=== PATIENT | female | born 1980 | race Caucasian/White ===

== ENCOUNTER 2024-07-08 15:27 | Outpatient (OUT) | payer BC, SELFPAY ==
[2024-07-08 15:44] LABS: Basophils Percent Auto 0.3 % (0.2-2.0); Eosinophils Absolute Auto 0.1 10^3/uL (0.0-0.7); Eosinophils Percent Auto 0.6 % (0.9-7.0); Hematocrit 39.5 % (36.0-48.0); Hemoglobin 13.2 g/dL (12.0-16.0); Immature Granulocytes Abs Auto 0.03 10^3/uL (0.00-0.03); Immature Granulocytes Pct Auto 0.3 % (0.0-0.5); Lymphocytes Absolute Auto 2.6 10^3/uL (1.2-3.8); Lymphocytes Percent Auto 28.1 % (20.5-60.0); Mean Corpuscular HGB Conc 33.4 g/dL (29.9-35.2); Mean Corpuscular Hemoglobin 31.7 pg (26.7-34.0); Mean Platelet Volume 8.8 fL (9.5-13.5); Monocytes Absolute Auto 0.7 10^3/uL (0.3-0.8); Monocytes Percent Auto 7.8 % (1.7-12.0); Neutrophils Absolute Auto 5.9 10^3/uL (1.4-6.5); Neutrophils Percent Auto 62.9 % (43.0-75.0); Platelet Count 364 10^3/uL (150-450); Red Blood Count 4.16 10^6/uL (4.20-5.40); Red Cell Distribution Width 11.9 % (11.0-15.0); White Blood Count 9.4 10^3/uL (4.0-11.0)
[2024-07-08 16:01] LABS: Estimated Average Glucose 108 mg/dL; Glycohemoglobin A1C 5.4 % (4.5-6.2)
[2024-07-08 16:29] LABS: Alanine Aminotransferase 15 U/L (14-59); Albumin Globulin Ratio 1.1; Albumin Level 3.8 g/dL (3.4-5.0); Alkaline Phosphatase 51 U/L (46-116); Anion Gap 12.2; Aspartate Amino Transferase 16 U/L (15-37); BUN Creatinine Ratio 15.7; Bilirubin Total 0.6 mg/dL (0.2-1.0); Carbon Dioxide 28.5 mmol/L (21.0-32.0); Chloride 103 mmol/L (98-107); Cholesterol 170 mg/dL (<=200); Estimated GFR (African America >60 (>=60 mL/min/1.73m^2); Estimated GFR (Non-African Ame >60 (>=60 mL/min/1.73m^2); Globulin 3.5 g/dL; Glucose 92 mg/dL (74-106); HDL Cholesterol 86 mg/dL (40-60); Potassium 3.7 mmol/L (3.5-5.1); Sodium 140 mmol/L (136-145); TSH W/ REFLEX FT4 0.424 uIU/mL (0.358-3.740); Total Protein 7.3 g/dL (6.4-8.2); Triglycerides 64 mg/dL (<=150); VLDL CHOLESTEROL 12.8 mg/dL
== END 2024-07-08 15:28 | disposition home or self-care (01) ==
LOC: LAB 15:30
DX: Z00.00 Encounter for general adult medical examination without abnormal findings (principal)
CPT/HCPCS: 36415; 80053; 80061; 83036; 84443; 85025

== ENCOUNTER 2024-09-27 15:50 | Outpatient (OUT) | payer BC, SELFPAY ==
[2024-09-29 04:08] LABS: Transferrin 350 mg/dL (192-364)
[2024-09-29 05:09] LABS: Vitamin B12 421 pg/mL (232-1245)
== END 2024-09-27 15:51 | disposition home or self-care (01) ==
LOC: LAB 15:51
DX: D64.9 Anemia, unspecified (principal)
CPT/HCPCS: 36415; 82607; 82728; 82746; 83540; 83550; 84466

== ENCOUNTER 2024-09-29 15:27 | Outpatient (REF) | payer BC, SELFPAY ==
--- OUTSIDE RECORDS SUMMARY | 2024-09-29 15:39 | XMS_ITS | CCD ---
Author Organization [facility] Care Team Providers Care Ribber Name Role Phone NO FAMILY, PHYSICIAN Primary Care Provider Unava ilable Amna Cobos Attending Provider [facility], DR TUCKER Primary Care Unavailable HERMINIA ., DR GODFREY Attending Unavailable HERMINIA ., DR GODFREY Consulting Unavailable HERMINIA ., DR GODFREY Admitting Unavailable Mariposa OJEDA, Rodrick Primary Care Provider Hassan CERAMIC DESIGN ENGINEER, Shira Unavailable AMNA COBOS Attending Unavailable HASSANTERESAY Attending Unavailabl e BLACKSTONADINAY T Attending Unavailable HASSAN, SHIRA Referring Unavailabl e BLACKSTON LULY T Attending Unavailable HASSAN, SHIRA Referring Unavailabl e BLACKSTON, LULY T Attending Unavailable HASSAN, SHIRA Referring Unavailabl e BLACKSTON LULY T Attending Unavailable HASSAN, SHRIA Referring Unavailabl e BLACKSTON, LULY T Attending Unavailable HASSAN, SHIRA Referring Unavailabl e BLACKSTON, LULY T Attending Unavailable HASSAN, SHIRA Referring Unavailabl e UDAY MATOS Attending Unavailable HASSAN, SHIRA Referring Unavailabl e BLACKSTON, LULY T Attending Unavailable HASSAN, SHIRA Referring Unavailabl e BLACKSTON, LULY T Attending Unavailable HASSAN, SHIRA Referring Unavailabl e HASSAN, SHIRA Attending Unavailabl e Medications Current Medications Medication Drug Class(es) Dates Sig (Normalized) Sig (Original) estradiol 1 mg oral tablet (20 sources) Estrogen Start: 03-29-2024 estradiol (Estrace) 1 MG tablet Indications: Hormone replacement therapy Take 1 tablet daily. 90 tablet 3 03/29/2024 Active Ilion (No Known Home Meds) (1 source) Start: 04-30-2019 Ilion (No Known Home Meds) Active April 30, 2019 12:00am tiZANidine 2 mg oral capsule (20 sources) Central alpha-2 Adrenergic Agonist Start: 07-07-2024 End: 07-07-2025 take 1 capsule by mouth every eight hours tiZANidine (Zanaflex) 2 MG capsule Indications: Back pain of lumbosacral region with sciatica Take 1 capsule (2 mg) by mouth every 8 (eight) hours 90 capsule 11 07/07/2024 07/07/2025 Active traMADol hydrochloride 50 mg oral tablet (1 source) Opioid Agonist Start: 01-28-2021 take 50 mg by mouth every four to six hours Tramadol Active 50 MG PO EVERY 4-6 HOURS January 28, 2021 12:00am Completed/Discontinued Medications Medication Drug Class(es) Dates Sig (Normalized) Sig (Original) cephalexin 500 mg oral capsule (2 sources) Cephalosporin Antibacterial Start: 05-01-2019 End: 01-07-2021 take 1 capsule by mouth four times daily Cephalexin (Keflex) 500 mg capsule Discontinued 500 MG PO Four times daily 03 04May 01, 2019 12:00am January 07, 2021 7:23am Problems Active Problems Problem Classification Problem Date Documented Date Episodic/Chronic Administrative/social admission (20 sources) First encounter by subject; Translations: [Persons encountering health services in other specified circumstances] Onset: 07-07-2024 07-07-2024 Episodic Deficiency and other anemia (5 sources) Anemia; Translations: [Anemia, unspecified] Onset: 09-22-2024 09-22-2024 Episodic Disorders of teeth and jaw (5 sources) Other specified disorders of teeth and supporting structures; Translations: [Periapical abscess without sinus] Onset: 01-10-2023 Episodic Fracture of upper limb (3 sources) Fracture of phalanx of finger; Translations: [Fracture of unspecified phalanx of unspecified finger, initial encounter for closed fracture] 05-01-2019 Episodic Menstrual disorders (20 sources) Dysmenorrhea; Translations: [Dysmenorrhea, unspecified] Onset: 03-25-2023 03-25-2023 Chronic Open wounds of extremities (3 sources) Laceration of finger; Translations: [Laceration without foreign body of unspecified finger without damage to nail, initial encounter] 05-01-2019 Episodic Other connective tissue disease (9 sources) Trochanteric bursitis; Translations: [Trochanteric bursitis, left hip] 07-26-2024 Episodic Other nervous system disorders (1 source) Postoperative pain ; Translations: [Other acute postprocedural pain] 01-28-2021 Episodic Skull and face fractures (1 source) Fracture of tooth (traumatic), initial encounter for closed fracture; Translations: [FX TOOTH TRAUMAT INIT ENC CLOS FX] Onset: 01-13-2023 Episodic Spondylosis; intervertebral disc disorders; other back problems (20 sources) Lumbago with sciatica; Translations: [Lumbago with sciatica, unspecified side] Onset: 07-07-2024 07-07-2024 Episodic Past or Other Problems Problem Classification Problem Date Documented Date Episodic/Chronic Other female genital disorders (20 sources) Mass of left ovary; Translations: [Other noninflammatory disorders of ovary, fallopian tube and broad ligament] Onset: 03-25-2023 03-25-2023 Episodic Other screening for suspected conditions (not mental disorders or infectious disease) (20 sources) Mammography abnormal; Translations: [Other abnormal and inconclusive findings on diagnostic imaging of breast] Onset: 03-25-2023 03-25-2023 Episodic Viral infection (20 sources) Condyloma acuminatum of the anogenital region; Translations: [Anogenital (venereal) warts] Onset: 03-25-2023 03-25-2023 Episodic Results Test Name Value Interpretation Reference Range Facility ALL FOLIC ACIDon 09-27-2024 FOLATE 26.7 ng/mL 8.60 - 58.90 ng/mL [facility] FERRITINon 09-27-2024 Ferritin [Mass/Vol] 86 ng/mL 8.0 - 25 2.0 ng/mL [facility] METRO IRON AND TIBCon 2024 TBH IRON 122 ug/dL 50.0 - 170.0 ug/dL [facility] TB PERCENT IRON SATURATION 28 % [facility] TB TOTAL IRON BINDING CAPACITY 436 ug/dL 250.0 - 450.0 ug/dL [facility] No [facility] WITH AUTO DIFFon BASOPHILS ABSOLUTE AUTO 0 [facility] Basophils/100 WBC (Bld) 0.3 % 0.2 - 2.0 % [facility] Eosinophils/100 WBC (Bld) 0.6 % Low 0.9 - 7.0 % [facility] Erythrocyte distribution width (RBC) [Ratio] 11.9 % 11.0 - 15.0 % [facility] Hematocrit (Bld) [Volume fraction] 39.5 % 36.0 - 48.0 % [facility] Hemoglobin (Bld) [Mass/Vol] 13.2 g/dL 12.0 - 16.0 g/dL [facility] IMMATURE GRANULOCYTES ABS AUTO 0.03 [facility] Immature granulocytes/100 WBC (Bld) 0.3 % 0.0 - 0.5 % [facility] Interpretation and review of laboratory results Abnormal [facility] LYMPHOCYTES ABSOLUTE AUTO 2.6 [facility] Lymphocytes/100 WBC (Bld) 28.1 % 20.5 - 60.0 % [facility] MCH (RBC) [Entitic mass] 31.7 pg 26.7 - 34.0 pg [facility] MCHC (RBC) [Mass/Vol] 33.4 g/dL 29.9 - 35.2 g/dL [facility] MCV (RBC) [Entitic vol] 95 fL 81.0 - 99.0 fL [facility] MONOCYTES ABSOLUTE AUTO 0.7 [facility] Monocytes/100 WBC (Bld) 7.8 % 1.7 - 12.0 % [facility] NEUTROPHILS ABSOLUTE AUTO 5.9 [facility] Neutrophils/100 WBC (Bld) 62.9 % 43.0 - 75.0 % [facility] Platelet mean volume (Bld) [Entitic vol] 8.8 fL Low 9.5 - 13.5 fL [facility] TBH EO # 0.1 [facility] TB PLT 364 [facility] RBC 4.16 Low [facility] TBH WBC 9.4 [facility] MM diagnostic mammo BI w/CAD on 03-27-2022 MM diagnostic mammo BI w/CAD [facility] [place] [address] Ultrasound Report Signed Patient: Evaristo Green MR#: [id number] : 1980 Acct:[id number] Age/Sex: 41 / F ADM Date: 03/27/22 Loc: [place] Room: Type: [facility] Attending Dr: Amna Cobos DO Ordering Provider: Amna Cobos DO Date of Service: 03/27/22 MM/MM diagnostic mammo BI w/CAD: abnormal 2020 mammogram;Breast cancer screening;Abnormal bryan ([id number]) US/US breast LT limited: F/U Copies to: Amna Cobos DO CLINICAL DATA: Follow-up cyst left breast BilateralDIAGNOSTIC MAMMOGRAM - WITH TOMOSYNTHESIS AND CAD , leftLIMITED BREAST ULTRASOUND COMPARISON:Mammograms dating back to 2020. Left breast ultrasound 12/25/2020 Tomosynthesis imaging was obtained using low-dose digital technique. This examination was reviewed with the aid of CAD. Additional ultrasound imaging was also obtained. Mammogram: The breasts are composed of scattered fibroglandular densities. No new areas of architectural distortion, worrisome masses or suspicious calcifications Ultrasound: At the 8:00 position of the left breast approximately 4 to 5 cm from nipple, the previous identified cyst is unchanged in size and configuration measuring 4 mm in greatest dimension. US/US breast LT limited IMPRESSION: NO MAMMOGRAPHIC OR ULTRASOUND EVIDENCE OF MALIGNANCY. ROUTINE FOLLOW-UP IS RECOMMENDED IN ONE YEAR. RESULT CODE: 2 Benign Findings(s) DENSITY CODE: 2 (approximately 25-50% glandular) FOLLOW UP: 1YR The false-negative rate of mammography is approximately 10-percent. Management of a palpable abnormality must be based on clinical grounds. Impression dictated by: Orion Cummings Jr., D.OSanam03/27/2022 3:30 PM Dictation Location: [facility] Tech: Archanamo Deleon; Isela Ruiz Transcribed By: ANGUS 03/27/22 1530 Dictated By: Orion Cummings Jr, DO 03/27/22 1526 Signed By: 03/27/22 1530 Normal [facility] COVID-19 Positive/Negativeon 01-10-2021 SARS-CoV-2 (COVID-19) N gene ORESTES+probe Ql (Resp) Positive Negative [facility] Comment on above: Critical valueresult calledat 1337 on 01/10/21Testing for SARS-CoV-2 by RT-PCRThis test was developed and its performance characteristics determined by [employer] and validated at the [facility]. This test has not been FDA cleared or approved. This test has been authorized by FDA under an Emergency Use Authorization (EUA). This test has been validated in accordance with the FDA's Guidance Document (Policy for Diagnostics Testing in Laboratories Certified to Perform High Complexity Testing under CLIA prior to Emergency Use Authorization for Coronavirus Disease-2019 during the Public Health Emergency) issued on December 08, 2019. This test is only authorized for the duration of time the declaration that circumstances exist justifying the authorization of the emergency use of in vitro diagnostic tests for detection of SARS-CoV-2 virus and/or diagnosis of COVID-19 infection under section 564(b)(1) of the Act, 21 U.S.C. 360bbb-3(b)(1), unless the authorization is terminated or revoked sooner. Activated partial thrombopla stin time (aPTT) in platelet poor plasma by coagulation aon 01-07-2021 aPTT Coag (PPP) [Time] 33.9 s 25.1-36.5 [facility] Albumin [Mass/volume] in Ser um or Plasmaon 01-07-2021 Albumin [Mass/Vol] 3.9 g/dL 3.2-5.5 [facility] Automated erythrocytes count in urine sediment (number/area)on 01-07-2021 RBC Auto (Urine sed) [#/Area] 5-9 [HPF] [facility] Automated leukocytes count i n urine sediment (number/area)on 01-07-2021 WBC Auto (Urine sed) [#/Area] 1-2 [HPF] [facility] Basophils Auto (Bld) [#/Vol] on 01-07-2021 Basophils (Bld) [#/Vol] 0.0 10*3/uL 0.0-0.2 [facility] Basophils/100 WBC Auto (Bld) on 01-07-2021 Basophils/100 WBC (Bld) 0.4 % [facility] Bilirubin Test strip Ql (U)o n 01-07-2021 Bilirubin Ql (U) Negative Negative [facility] Blood hemoglobin measurement (mass/volume)on 01-07-2021 Hemoglobin (Bld) [Mass/Vol] 12.4 g/dL 11.8-15.4 [facility] Blood leukocytes automated c ount (number/volume)on 01-07-2021 WBC (Bld) [#/Vol] 12.1 10*3/uL 4.5-11.0 [facility] Color Auto (U)on 01-07-2021 Color (U) Yellow Yellow [facility] Creatinine and Glomerular fi ltration rate.predicted panel (S/P/Bld)on 01-07-2021 Creatinine [Mass/Vol] 0.72 mg/dL 0.44-1.03 [facility] Eosinophils Auto (Bld) [#/Vo l]on 01-07-2021 Eosinophils (Bld) [#/Vol] 0.1 10*3/uL 0.0-0.45 [facility] Eosinophils/100 WBC Auto (Bl d)on 01-07-2021 Eosinophils/100 WBC (Bld) 0.9 % [facility] Erythrocyte distribution wid th Auto (RBC) [Ratio]on 01-07-2021 Erythrocyte distribution width (RBC) [Ratio] 13.0 % 11.9-15.3 [facility] Estimated glomerular filtrat ion rate (GFR) non- Americanon 01-07-2021 GFR/1.73 sq M.predicted among non-blacks MDRD (S/P/Bld) [Vol rate/Area] > 60 mL/Min [facility] Globulin Calc (S) [Mass/Vol] on 01-07-2021 Globulin (S) [Mass/Vol] 2.5 g/dL [facility] Hematocrit Auto (Bld) [Volum e fraction]on 01-07-2021 Hematocrit (Bld) [Volume fraction] 38.1 % 34.0-46.4 [facility] Ketones Auto test strip (U) [Mass/Vol]on 01-07-2021 Ketones (U) [Mass/Vol] Negative Negative [facility] Laboratory - Coagulationon 0 01-07-2021 PT Coag (PPP) [Time] 11.2 s 9.0-12.9 [facility] Laboratory - Hematology and Cell countson 01-07-2021 Nucleated RBC/100 WBC (Bld) [Ratio] 0.0 % 0-0.5 [facility] Laboratory - Urinalysison Hyaline casts LM Ql (Urine sed) 0-8 [LPF] [facility] Lymphocytes Auto (Bld) [#/Vo l]on 01-07-2021 Lymphocytes (Bld) [#/Vol] 3.1 10*3/uL 1.00-4.8 [facility] Lymphocytes/100 WBC Auto (Bl d)on 01-07-2021 Lymphocytes/100 WBC (Bld) 25.5 % [facility] MCH Auto (RBC) [Entitic mass ]on 01-07-2021 MCH (RBC) [Entitic mass] 31.0 pg 24.7-34.3 [facility] MCHC Auto (RBC) [Mass/Vol]on 01-07-2021 MCHC (RBC) [Mass/Vol] 32.5 g/dL 32.0-35.0 [facility] MCV Auto (RBC) [Entitic vol] on 01-07-2021 MCV (RBC) [Entitic vol] 95.3 fL 80-100 [facility] Monocytes Auto (Bld) [#/Vol] on 01-07-2021 Monocytes (Bld) [#/Vol] 0.9 10*3/uL 0.0-0.8 [facility] Monocytes/100 WBC Auto (Bld) on 01-07-2021 Monocytes/100 WBC (Bld) 7.7 % [facility] Neutrophils Auto (Bld) [#/Vo l]on 01-07-2021 Neutrophils (Bld) [#/Vol] 7.9 10*3/uL 1.8-7.7 [facility] Neutrophils/100 WBC Auto (Bl d)on 01-07-2021 Neutrophils/100 WBC (Bld) 65.5 % [facility] Nitrite Test strip Ql (U)on 01-07-2021 Nitrite Ql (U) Negative Negative [facility] No Panel Informationon 01-07 Estimated GFR () > 60 mL/Min [facility] Comment on above: GFR estimated refere nce range: According to KDOQI guidelines, <60 ml/min/1.73m2 is sufficient to diagnose a patient with chronic kidney disease. Pharmacy Creatinine Clearance (Chem N/A [facility] Platelet mean volume Auto (B ld) [Entitic vol]on 01-07-2021 Platelet mean volume (Bld) [Entitic vol] 7.5 fL 6.3-10.7 [facility] Platelet poor plasma interna tional normalized ratio (INR) by coagulation assay (relaton 01-07-2021 INR Coag (PPP) [Relative time] 1.0 {INR} [facility] Comment on above: INR Therapeutic Rang e A) Pre- and Peroperative OAT started two weeks before surgery. NOT HIP SURGERY: 1.5 - 2.5 HIP SURGERY: 2 - 3B) Primary and secondary prevention of venous THROMBOSIS: 2 - 3C) Active venous thrombosis, pulmonary embolismand prevention of recurrent venous thrombosis: 2 - 3D) Prevention of arterial thromboembolismincluding patients with mechanical heart valves: 3 - 4.5 Platelets Auto (Bld) [#/Vol] on 01-07-2021 Platelets (Bld) [#/Vol] 364 10*3/uL 150-450 [facility] Protein Auto test strip (U) [Mass/Vol]on 01-07-2021 Protein (U) [Mass/Vol] Negative Negative [facility] Protein [Mass/volume] in Ser um or Plasmaon 01-07-2021 Protein [Mass/Vol] 6.4 g/dL 6.1-7.9 [facility] RBC Auto (Bld) [#/Vol]on RBC (Bld) [#/Vol] 4.00 10*6/uL 3.60-5.00 [facility] Serum or plasma alanine arizmendi otransferase measurement without P-5'-P (enzymatic activion 01-07-2021 ALT No additional P-5'-P [Catalytic activity/Vol] 17 U/L 10-60 [facility] Serum or plasma albumin/glob ulin mass ratioon 01-07-2021 Albumin/Globulin [Mass ratio] 1.6 {ratio} [facility] Serum or plasma alkaline kevin sphatase measurement (enzymatic activity/volume)on 01-07-2021 ALP [Catalytic activity/Vol] 64 U/L 32-92 [facility] Serum or plasma aspartate am inotransferase measurement (enzymatic activity/volume)on 01-07-2021 AST [Catalytic activity/Vol] 20 U/L 10-42 [facility] Serum or plasma calcium sakshi urement (mass/volume)on 01-07-2021 Calcium [Mass/Vol] 9.1 mg/dL 8.2-10.2 [facility] Serum or plasma cancer antig en 125 (CA-125) measurement (units/volume)on 01-07-2021 Cancer Ag 125 Qn 21.9 [arb'U]/mL [facility] Comment on above: Bob [employer] El ectrochemiluminescence Immunoassay(ECLIA)Values obtained with different assay methods or kits cannotbe used interchangeably. Results cannot be interpreted asabsolute evidence of the presence or absence of malignantdisease.Performed at: [employer] [address] [id number] Director: Robert Hutson PhD, Phone: [phone] Serum or plasma carcinoembry onic antigen measurement (mass/volume)on 01-07-2021 Carcinoembryonic Ag [Mass/Vol] 1.6 ng/mL 0.0-3.0 [facility] Serum or plasma chloride meghana surement (moles/volume)on 01-07-2021 Chloride [Moles/Vol] 103 mmol/L 95-114 [facility] Serum or plasma glucose sakshi urement (mass/volume)on 01-07-2021 Glucose [Mass/Vol] 96 mg/dL 70-100 [facility] Comment on above: ADA recommended refe rence rangeRandom Glucose Reference Range is dependent on time and content of last meal. Glucose of more than 200 mg/dL in a nonstressed, ambulatory subject supports the diagnosis of Diabetes Mellitus. Serum or plasma potassium me asurement (moles/volume)on 01-07-2021 Potassium [Moles/Vol] 3.8 mmol/L 3.5-5.1 [facility] Serum or plasma sodium measu rement (moles/volume)on 01-07-2021 Sodium [Moles/Vol] 137 mmol/L 136-146 [facility] Serum or plasma total biliru bin measurement (mass/volume)on 01-07-2021 Bilirubin [Mass/Vol] 0.4 mg/dL 0.3-1.2 [facility] Serum or plasma total carbon dioxide measurement (moles/volume)on 01-07-2021 CO2 [Moles/Vol] 26.1 mmol/L 22.0-30.0 [facility] Serum or plasma urea nitroge n measurement (mass/volume)on 01-07-2021 Urea nitrogen [Mass/Vol] 12 mg/dL 9-23 [facility] Specific gravity Auto test s trip (U) [Rel density]on 01-07-2021 Specific gravity (U) [Rel density] 1.029 1.001-1.030 [facility] Squamous epithelial cells de tection in urine sediment by light microscopyon 01-07-2021 Epithelial cells.squamous LM Ql (Urine sed) 5-9 [HPF] [facility] Urine bacteria detection by automated methodon 01-07-2021 Bacteria Auto Ql (U) None seen None Seen [facility] Urine clarity by refractomet ry automatedon 01-07-2021 Clarity Refractometry automated (U) Clear Clear [facility] Urine glucose measurement by automated test strip (mass/volume)on 01-07-2021 Glucose Auto test strip (U) [Mass/Vol] Normal mg/dL Normal [facility] Urine hemoglobin detection b y automated test stripon 01-07-2021 Hemoglobin Auto test strip Ql (U) 3+ Negative [facility] Urine leukocyte esterase det ection by automated test stripon 01-07-2021 Leukocyte esterase Auto test strip Ql (U) Negative Negative [facility] Urobilinogen Auto test strip (U) [Mass/Vol]on 01-07-2021 Urobilinogen (U) [Mass/Vol] Normal mg/dL Normal [facility] pH Auto test strip (U)on pH (U) 6.5 [pH] 5.0-9.0 [facility] Vital Signs Date Time Vital Sign Value Performing Clinician Faci lity 09-22-2024 14:55-0500 Body height 165.1 cm Shira Hassan CERAMIC DESIGN ENGINEER Work Phone: [facility] 09-22-2024 14:55-0500 Body mass index (BMI) [Ratio] 29.29 kg/m2 Shira Hassan CERAMIC DESIGN ENGINEER Work Phone: [facility] 09-22-2024 14:55-0500 Body temperature 97.5 [degF] Shira Hassan CERAMIC DESIGN ENGINEER Work Phone: [facility] 09-22-2024 14:55-0500 Body weight 79.83 kg Shira Hassan CERAMIC DESIGN ENGINEER Work Phone: [facility] 09-22-2024 14:55-0500 Diastolic blood pressure 70 mm[Hg] Shira Hassan CERAMIC DESIGN ENGINEER Work Phone: [facility] 09-22-2024 14:55-0500 Heart rate 76 /min Shira Hassan CERAMIC DESIGN ENGINEER Work Phone: [facility] 09-22-2024 14:55-0500 Respiratory rate 20 /min Shira Hassan CERAMIC DESIGN ENGINEER Work Phone: [facility] 09-22-2024 14:55-0500 SaO2% (BldA) [Mass fraction] 99 % Shira Hassan CERAMIC DESIGN ENGINEER Work Phone: [facility] 09-22-2024 14:55-0500 Systolic blood pressure 130 mm[Hg] Shira Hassan CERAMIC DESIGN ENGINEER Work Phone: [facility] 07-07-2024 15:52-0400 Body height 165.1 cm Shira Hassan CERAMIC DESIGN ENGINEER Work Phone: [facility] 07-07-2024 15:52-0400 Body mass index (BMI) [Ratio] 28.46 kg/m2 Shira Hassan CERAMIC DESIGN ENGINEER Work Phone: [facility] 07-07-2024 15:52-0400 Body temperature 96.6 [degF] Shira Milligank CERAMIC DESIGN ENGINEER Work Phone: [facility] 07-07-2024 15:52-0400 Body weight 77.56 kg Shira Milligank CERAMIC DESIGN ENGINEER Work Phone: [facility] 07-07-2024 15:52-0400 Diastolic blood pressure 72 mm[Hg] Shira Ayalapatrick CERAMIC DESIGN ENGINEER Work Phone: [facility] 07-07-2024 15:52-0400 Heart rate 83 /min Shira Callestrick CERAMIC DESIGN ENGINEER Work Phone: [facility] 07-07-2024 15:52-0400 Respiratory rate 16 /min Shira Callestrick CERAMIC DESIGN ENGINEER Work Phone: [facility] 07-07-2024 15:52-0400 SaO2% (BldA) [Mass fraction] 98 % Shira Calelstrick CERAMIC DESIGN ENGINEER Work Phone: [facility] 07-07-2024 15:52-0400 Systolic blood pressure 124 mm[Hg] Shira Ayalapatrick CERAMIC DESIGN ENGINEER Work Phone: [facility] Healthcare Encounters Encounter Date Encounter Type Care Provider Facility Start: 09-27-2024 End: 09-27-2024 Clinisync Result Encounter Shira Milligank CERAMIC DESIGN ENGINEER Work Phone: [facility] External Department Unsolicited Start: 09-27-2024 End: 09-27-2024 Clinisync Result Encounter Shira Milligank CERAMIC DESIGN ENGINEER Work Phone: [facility] External Department Unsolicited Start: 09-22-2024 End: 09-22-2024 Office outpatient visit 10 minutes Shira Milligank CERAMIC DESIGN ENGINEER Work Phone: [facility] Comment on above: Anemia, unspecified type (Primary Dx); Back pain of lumbosacral region with sciatica Start: 09-22-2024 End: 09-22-2024 ambulatory SHIRA HASSAN Not Available Start: 09-22-2024 End: 09-22-2024 Bamboo flowsheet Shira Hassan CERAMIC DESIGN ENGINEER Work Phone: [facility] Start: 09-22-2024 End: 09-22-2024 Bamboo flowsheet Shira Milligank CERAMIC DESIGN ENGINEER Work Phone: [facility] Start: 08-18-2024 End: 08-18-2024 ambulatory Luly Garcia PT Work Phone: [facility] Comment on above: Back pain of lumbosa cral region with sciatica (Primary Dx); Greater trochanteric bursitis of left hip Start: 08-18-2024 End: 08-18-2024 Bamboo flowsheet Luly Garcia PT Work Phone: [facility] Start: 08-18-2024 End: 08-18-2024 Bamboo flowsheet Luly Garcia PT Work Phone: [facility] Start: 08-15-2024 End: 08-15-2024 ambulatory Luly Garcia PT Work Phone: [facility] Comment on above: Back pain of lumbosa cral region with sciatica (Primary Dx); Greater trochanteric bursitis of left hip Start: 08-15-2024 End: 08-15-2024 Bamboo flowsheet Luly Garcia PT Work Phone: [facility] Start: 08-15-2024 End: 08-15-2024 Bamboo flowsheet Luly Garcia PT Work Phone: [facility] Start: 08-10-2024 End: 08-10-2024 ambulatory Uday Brink BLOOD COLLECTOR [facility] Comment on above: Back pain of lumbosa cral region with sciatica (Primary Dx); Greater trochanteric bursitis of left hip Start: 08-10-2024 End: 08-10-2024 Bamboo flowsheet Uday Brink BLOOD COLLECTOR [facility] Start: 08-10-2024 End: 08-10-2024 Bamboo flowsheet Uday Matos BLOOD COLLECTOR [facility] Start: 08-08-2024 End: 08-09-2024 ambulatory Luly Iqra Blackston PT Work Phone: [facility] Comment on above: Back pain of lumbosa cral region with sciatica (Primary Dx); Greater trochanteric bursitis of left hip Start: 08-08-2024 End: 08-08-2024 Bamboo flowsheet Luly T Blackston PT Work Phone: [facility] Start: 08-08-2024 End: 08-08-2024 Bamboo flowsheet Luly T Blackston PT Work Phone: [facility] Start: 08-01-2024 End: 08-02-2024 ambulatory Luly Iqra Blackston PT Work Phone: [facility] Comment on above: Back pain of lumbosa cral region with sciatica (Primary Dx); Greater trochanteric bursitis of left hip Start: 08-01-2024 End: 08-01-2024 Bamboo flowsheet Luly T Blackston PT Work Phone: [facility] Start: 08-01-2024 End: 08-01-2024 Bamboo flowsheet Luly T Blackston PT Work Phone: [facility] Start: 07-28-2024 End: 07-28-2024 ambulatory Luly T Blackston PT Work Phone: [facility] Comment on above: Back pain of lumbosa cral region with sciatica (Primary Dx); Greater trochanteric bursitis of left hip Start: 07-28-2024 End: 07-28-2024 Bamboo flowsheet Luly T Blackston PT Work Phone: [facility] Start: 07-28-2024 End: 07-28-2024 Bamboo flowsheet Luly T Blackston PT Work Phone: [facility] Start: 07-26-2024 End: 07-26-2024 ambulatory Luly Garcia PT Work Phone: [facility] Comment on above: Back pain of lumbosa cral region with sciatica (Primary Dx); Greater trochanteric bursitis of left hip Start: 07-26-2024 End: 07-26-2024 Bamboo flowsheet Luly Tinsleyton PT Work Phone: [facility] Start: 07-26-2024 End: 07-26-2024 Bamboo flowsheet Luly Tinsleyton PT Work Phone: [facility] Start: 07-21-2024 End: 07-21-2024 ambulatory Luly Garcia PT Work Phone: [facility] Comment on above: Back pain of lumbosa cral region with sciatica (Primary Dx); Greater trochanteric bursitis of left hip Start: 07-21-2024 End: 07-21-2024 Bamboo flowsheet Luly Tinsleyton PT Work Phone: [facility] Start: 07-21-2024 End: 07-21-2024 Bamboo flowsheet Luly Garcia PT Work Phone: [facility] Start: 07-18-2024 End: 07-19-2024 ambulatory Luly Garcia PT Work Phone: [facility] Comment on above: Back pain of lumbosa cral region with sciatica (Primary Dx); Greater trochanteric bursitis of left hip Start: 07-18-2024 End: 07-18-2024 Bamboo flowsheet Luly Iqra Blackston PT Work Phone: [facility] Start: 07-18-2024 End: 07-18-2024 Bamboo flowsheet Luly Iqra Blackston PT Work Phone: [facility] Start: 07-08-2024 End: 07-08-2024 Clinisync Result Encounter Shira Hassan CERAMIC DESIGN ENGINEER Work Phone: [facility] Unsolicited Start: 07-08-2024 End: 07-08-2024 Clinisync Result Encounter Shira Hassan CERAMIC DESIGN ENGINEER Work Phone: [facility] Unsolicited Start: 07-07-2024 End: 07-07-2024 Initial preventive medicine new patient 40-64yrs Shira Hassan CERAMIC DESIGN ENGINEER Work Phone: [facility] Comment on above: Back pain of lumbosa cral region with sciatica (Primary Dx); Wellness examination Start: 07-07-2024 End: 07-07-2024 ambulatory SHIRA HASSAN Not Available Start: 07-07-2024 End: 07-07-2024 Bamboo flowsheet Shira Milligank CERAMIC DESIGN ENGINEER Work Phone: [facility] Start: 07-07-2024 End: 07-07-2024 Bamboo flowsheet Shira Milligank CERAMIC DESIGN ENGINEER Work Phone: [facility] Start: 07-07-2024 End: 07-07-2024 Patient encounter status Shira Hassan CERAMIC DESIGN ENGINEER Work Phone: [facility] Start: 03-29-2024 End: 03-29-2024 ambulatory AMNA COBOS Not Available Start: 01-10-2023 End: 01-10-[address] DOCTOR SOLORZANO Facility: Start: 03-27-2022 End: 03-27-2022 Patient encounter procedure PHYSICIAN NO [facility] Start: 01-10-2021 End: 01-10-2021 Patient encounter procedure PHYSICIAN NO FAMILY -Pre-Surgical Testing Start: 01-07-2021 End: 01-07-2021 Patient encounter procedure PHYSICIAN NO FAMILY -Pre-Surgical Testing Start: 12-25-2020 End: 12-25-2020 Patient encounter procedure PHYSICIAN NO [facility] Start: 12-21-2020 End: 12-21-2020 Patient encounter procedure PHYSICIAN NO [facility] Procedures Date Procedure Procedure Detail Performing Clinician Start: 09-27-2024 ALL FOLIC ACID Shira Hassan CERAMIC DESIGN ENGINEER Work Phone: Start: 09-27-2024 [facility]IN Shira lubin CERAMIC DESIGN ENGINEER Work Phone: Start: 09-27-2024 [facility] Kamilah ben Hassan CERAMIC DESIGN ENGINEER Work Phone: Start: 07-08-2024 ALL CBC WITH AUTO DIFF Shira Hassan CERAMIC DESIGN ENGINEER Work Phone: Start: 03-27-2022 Ultrasonography of l eft breast PHYSICIAN NO FAMILY Start: 03-27-2022 End: 03-27-2022 Bilateral mammography PHYSICIAN NO FAMIL Y Start: 12-25-2020 Mammography of left breast PHYSICIAN NO FAMILY Start: 12-25-2020 Ultrasonography of l eft breast PHYSICIAN NO FAMILY Start: 12-21-2020 Screening mammograph y of bilateral breasts PHYSICIAN NO FAMILY Plan of Treatment Date Care Activity Detail Author Start: 09-25-2025 End: 09-25-2025 Patient encounter procedure 09/25/2025 4:00 PM EST Office Visit [facility] [address] [place] [phone] Shira Hassan, ARLYN [address] [place] [phone] [facility] Start: 04-03-2025 End: 04-03-2025 Patient encounter procedure 04/03/2025 3:45 PM EDT Office Visit [facility] [address] [place] [address] Amna Cobos, DO [address] [place] [address] [facility] Start: 03-06-2025 Influenza vaccination Influenza Vacc ine (#1) [facility] Comment on above: Postponed from 05/08 (Patient Refused) Start: 09-22-2024 End: 09-22-2024 Patient encounter procedure 09/22/2024 3:00 PM EST Office Visit [facility] [address] [place] [address] Shira Hassan, CERAMIC DESIGN ENGINEER [address] [place] [address] Arrived [facility] Comment on above: Arrived Start: 09-22-2024 End: 09-22-2025 Cobalamin (Vitamin B12) [Mass/volume] in Serum or Plasma Vitamin B12 Lab Routine Anemia, unspecified type Expected: 09/22/2024 (Approximate), Expires: 09/22/2025 [facility] Work Phone: Comment on above: Expected: 09/22/2024 (Approximate), Expires: 09/22/2025 Start: 09-22-2024 End: 09-22-2025 Ferritin [Mass/volume] in Serum or Plasma Ferritin Lab Routine Anemia, unspecified type Expected: 09/22/2024 (Approximate), Expires: 09/22/2025 [facility] Comment on above: Expected: 09/22/2024 (Approximate), Expires: 09/22/2025 Start: 09-22-2024 End: 09-22-2025 Folate [Mass/volume] in Serum or Plasma Folate Lab Routine Anemia, unspecified type Expected: 09/22/2024 (Approximate), Expires: 09/22/2025 [facility] Comment on above: Expected: 09/22/2024 (Approximate), Expires: 09/22/2025 Start: 09-22-2024 End: 09-22-2025 Iron + transferrin + TIBC Iron + transferrin + TIBC Lab Routine Anemia, unspecified type Expected: 09/22/2024 (Approximate), Expires: 09/22/2025 [facility] Comment on above: Expected: 09/22/2024 (Approximate), Expires: 09/22/2025 Start: 09-22-2024 End: 09-22-2025 Measurement of occult blood in single stool specimen Occult blood x 1, stool Lab Routine Anemia, unspecified type Expected: 09/22/2024 (Approximate), Expires: 09/22/2025 [facility] Comment on above: Expected: 09/22/2024 (Approximate), Expires: 09/22/2025 Start: 09-13-2024 End: 09-13-2024 Patient encounter procedure 09/13/2024 4:00 PM EST Office Visit [facility] [address] [place] [phone] Shira Hassan CERAMIC DESIGN ENGINEER [address] [place] [phone] [facility] Start: 08-18-2024 End: 08-18-2024 ambulatory [facility] Comment on above: Arrived Start: 08-17-2024 End: 08-17-2024 ambulatory [facility] Start: 08-15-2024 End: 08-15-2024 ambulatory [facility] Comment on above: Arrived Start: 08-10-2024 End: 08-10-2024 ambulatory [facility] Comment on above: Back pain of lumbosa cral region with sciatica (Primary Dx); Greater trochanteric bursitis of left hip Start: 08-08-2024 End: 08-08-2024 ambulatory [facility] Comment on above: Arrived Start: 08-01-2024 End: 08-01-2024 ambulatory [facility] Comment on above: Arrived Start: 07-28-2024 End: 07-28-2024 ambulatory [facility] Comment on above: Arrived Start: 07-26-2024 End: 07-26-2024 ambulatory 07/26/2024 5:00 PM EST Treatment [facility] [address] [facility] [address] [place] [address] Luly Garcia, PT [address] [place] [address] [facility] Start: 07-18-2024 End: 07-18-2024 ambulatory 07/18/2024 4:30 PM EST Evaluation [facility] [address] [place] [address] Luly Garcia, PT [address] [place] [address] [facility] Start: 07-07-2024 End: 07-07-2024 Patient encounter procedure 07/07/2024 4:00 PM EDT Office Visit [facility] [address] [place] [phone] Shira Hassan, ARLYN [address] [place] [phone] Arrived [facility] Comment on above: Arrived Start: 07-07-2024 End: 07-07-2025 CBC W Auto Differential panel - Blood CBC and differential Lab Routine Wellness examination Expected: 07/07/2024 (Approximate), Expires: 07/07/2025 [facility] Comment on above: Expected: 07/07/2024 (Approximate), Expires: 07/07/2025 Start: 07-07-2024 End: 07-07-2025 Comprehensive metabolic 2000 panel - Serum or Plasma Comprehensive metabolic panel Lab Routine Wellness examination Expected: 07/07/2024 (Approximate), Expires: 07/07/2025 [facility] Comment on above: Expected: 07/07/2024 (Approximate), Expires: 07/07/2025 Start: 07-07-2024 End: 07-07-2025 Hemoglobin A1c/Hemoglobin.total in Blood Hemoglobin A1c Lab Routine Wellness examination Expected: 07/07/2024 (Approximate), Expires: 07/07/2025 [facility] Comment on above: Expected: 07/07/2024 (Approximate), Expires: 07/07/2025 Start: 07-07-2024 End: 07-07-2025 Lipid 1996 panel - Serum or Plasma Lipid panel Lab Routine Wellness examination Expected: 07/07/2024 (Approximate), Expires: 07/07/2025 [facility] Comment on above: Expected: 07/07/2024 (Approximate), Expires: 07/07/2025 Start: 07-07-2024 End: 07-07-2025 TSH W/REFLEX TO FT4 TSH W/REFLEX TO FT4 Lab Routine Wellness examination Expected: 07/07/2024 (Approximate), Expires: 07/07/2025 [facility] Work Phone: Comment on above: Expected: 07/07/2024 (Approximate), Expires: 07/07/2025 Start: 05-08-2024 Influenza vaccination Influenza Vacc ine (#1) [facility] Start: 03-27-2023 Screening for malign ant neoplasm of breast Mammogram [facility] Immunizations Immunization Date Immunization Notes Care Provider Giacomo junior 05-01-2019 tetanus toxoid, redu celine diphtheria toxoid, and acellular pertussis vaccine, adsorbed PHYSICIAN NO [facility] Payers Date Payer Category Payer [facility] [id number] 2017 Unknown [id number] 1980 Unknown [id number] 2.16.84 [id number] 1980 Unknown [id number] 2.16.84 [id number] 1980 Unknown [id number] 2.16.84 [id number] 1980 Unknown [id number] 2.16.84 [id number] 1980 Unknown [id number] 2.16.84 [id number] 1980 Unknown [id number] 2.16.84 [id number] 1980 Unknown [id number] 2.16.84 [id number] 1980 Unknown [id number] 2.16.84 0.1.659101.3.579.2.9 1980 Unknown [id number] 2.16.84 0.1.745297.3.579.2.9 1980 Unknown [id number] 2.16.84 [id number] 1980 Unknown [id number] 2.16.84 [id number] 1980 Unknown [id number] 2.16.84 [id number] 1980 Unknown [id number] 2.16.84 [id number] 1959 Unknown [id number] Self-pay Self Pay [id number] Social History Date Type Detail Facility Start: 01-07-2021 End: 03-29-2024 Tobacco smoking status MDIS Ex-smoker (finding) [facility] Start: 1980 Sex Assigned At Female F [facility] History of tobacco use Current smoker [facility] History of tobacco use Cigarette Smoker [facility] Start: 03-29-2024 End: 07-06-2024 Cigarettes smoked current (pack per day) - Reported 1 [facility] Start: 03-29-2024 Tobacco use and exposure Smoke less tobacco non-user [facility] Start: 03-29-2024 End: 07-07-2024 Alcoholic beverage intake Ex-drinker (finding) [facility] Start: 03-29-2024 End: 07-06-2024 [id number] Health Literacy [facility] How often do you nee d to have someone help you when you read instructions, pamphlets, or other written material from your doctor or pharmacy [SILS] Never [facility] Do you belong to any clubs or organizations such as mosque groups, unions, fraternal or athletic groups, or school groups? No [facility] Are you now , , , , never or living with a partner? Living with partner [facility] How often to you hav e a drink containing alcohol? Monthly or less [facility] How many standard dr inks containing alcohol do you have on a typical day? 1 or 2 [facility] How often do you hav e 6 or more drinks on 1 occasion? Never [facility] Do you feel stress - tense, restless, nervous, or anxious, or unable to sleep at night because your mind is troubled all the time - these days [OSQ] To some extent [facility] Start: 1980 Sex assigned at Not on file [facility] Goals Date Patient Goal Desired Activity /State Clinical Notes 07-07-2024 to 09-22-2024 Shira Hassan, ARLYN - 09/22/2024 3:12 PM Kathrin Hassan, ARLYN - 09/22/2024 3:11 PM Kathrin Hassan NP - 09/22/2024 3:00 PM Wilian Garcia, PT - 08/15/2024 4:00 PM EST Note Date & Type Note Facility 09-22-2024 History of Presen t illness Narrative Associated Problem(s): Anemia Slight anemia noted on lab work, will do anemia workup today to determine specific cause. Associated Problem(s): Back pain of lumbosacral region with sciatica Is here today for a 2 month follow up. Completed PT- states her leg and back pain is significantly better since doing PT. Images from the original note were not included. Subjective Patient ID: Evaristo Green is a 44 y.o. female who presents for Follow-up (2 m). HPI Is here today for a 2 month follow up. Completed PT- states her leg pain is significantly better since doing PT. Offers no complaints or concerns today. Review of Systems Constitutional: Negative for activity change, appetite change, chills, diaphoresis, fatigue, fever and unexpected weight change. HENT: Negative for congestion, ear pain, rhinorrhea, sinus pressure, sinus pain, sneezing, sore throat, trouble swallowing and voice change. Eyes: Negative for visual disturbance. Respiratory: Negative for cough, chest tightness, shortness of breath and wheezing. Cardiovascular: Negative for chest pain, palpitations and leg swelling. Gastrointestinal: Negative for abdominal distention, abdominal pain, blood in stool, constipation, diarrhea and vomiting. Genitourinary: Negative for decreased urine volume, dysuria, flank pain, frequency, hematuria and urgency. Musculoskeletal: Negative for arthralgias, gait problem, joint swelling and myalgias. Skin: Negative for rash. Neurological: Negative for dizziness, tremors, syncope, weakness, light-headedness and headaches. Psychiatric/Behavioral: Negative for decreased concentration and suicidal ideas. The patient is not nervous/anxious. Hematological: Does not bruise/bleed easily. Endocrine: Negative for cold intolerance, heat intolerance, polydipsia, polyphagia and polyuria. Objective Physical Exam Constitutional: Appearance: Normal appearance. HENT: Head: Normocephalic. Right Ear: External ear normal. Left Ear: External ear normal. Nose: Nose normal. Mouth/Throat: Mouth: Mucous membranes are moist. Pharynx: Oropharynx is clear. Eyes: Pupils: Pupils are equal, round, and reactive to light. Cardiovascular: Rate and Rhythm: Normal rate and regular rhythm. Pulses: Normal pulses. Pulmonary: Effort: Pulmonary effort is normal. Breath sounds: Normal breath sounds. Abdominal: General: Abdomen is flat. Bowel sounds are normal. Palpations: Abdomen is soft. Musculoskeletal: General: Normal range of motion. Cervical back: Normal range of motion. Skin: General: Skin is warm. Capillary Refill: Capillary refill takes less than 2 seconds. Neurological: Mental Status: She is alert and oriented to person, place, and time. Psychiatric: Mood and Affect: Mood normal. Behavior: Behavior normal. Assessment/Plan Problem List Items Addressed This Visit Back pain of lumbosacral region with sciatica Is here today for a 2 month follow up. Completed PT- states her leg and back pain is significantly better since doing PT. Anemia - Primary Slight anemia noted on lab work, will do anemia workup today to determine specific cause. Relevant Orders Vitamin B12 Ferritin Iron + transferrin + TIBC Occult blood x 1, stool Folate documented in this encounter [facility] 08-15-2024 History of Presen t illness Narrative Physical Therapy Treatment Visit Patient Name: Evaristo Green Today's Date: 08/15/24 Encounter Diagnoses Name Primary? Back pain of lumbosacral region with sciatica Yes Greater trochanteric bursitis of left hip Visit number: 9 Timed Code Treatment Minutes: 30 minutes Total Treatment Time: 30 minutes Time In: 1600 Time Out: 1630 History: Pt. Presents to PT with c/c left lateral hip pain which started 6 months. No KODY. 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 Denies N/T. Taking muscle relaxer 2 weeks which has not helped. Pt. Reports overall hip is starting to feel a little better. Precautions: as tolerated Subjective: Pt. Reports of no hip pain today but did not work today. Pain: 0/10 Objective: PT Evaluation (07/18/24) Left hip ROM: WFL Lumbar ROM: flexion normal, SB left decreased 50% with pain Flexibility: moderate ITB, piriformis and hamstring tightness Strength: left lateral hip 4/5, flexion 4+/5, extension 4/5 Palpation: TTP left greater trochanter Gait: antalgic gait Treatment: Education: HEP education with demonstration, Educated on Eval Findings and POC Manual Therapy: ( 10 minutes) lumbar PA mobs, MFR, QL str. Hamstring str. Passive ROM, Joint mobilization, Soft Tissue Mobilization, Myofascial Release, Muscle Energy Technique, Neural Mobilization, Myofascial Cupping, Dry Needling, IASTM, and Scar mobilization Therapeutic Exercise: (20 minutes) Exercises to improve hip/pelvic stability required to reduce tension on hip bursa. exercises in grid; Strength, Endurance, Flexibility, ROM, HEP, Neural Mobilization, Power, and Core Stability Therapeutic Activity: (minutes) Functional activity performed to improve hip/ LE stability during weight bearing. Verbal cues to improve glute involvement to stabilize LE/pelvic, fair tolerance. Exercises to improve dynamic activities, functional tasks, functional mobility to return to prior activity level Neuromuscular re-education: Balance Training, Muscle Facilitation, Dynamic Stability, Core Stabilization, and Blood Flow Restriction Training (BFRT) Modalities: Heat, Ice, Electrical Stimulation, Ultrasound, Cervical Mechanical Traction, Lumbar Mechanical Traction, Iontophoresis, and Fluidotherapy Assessment: Pt. Has participated in 9 PT session with start of POC on 07/18 with left greater trochanter bursitis. Pt. Will benefit from skilled PT services. Pt. Will be discharged next PT session. Good progress toward goals. Outcome Measure: 26% Short Term Goal: To be met in 2 weeks Goal 1: Pt to be instructed in home exercise program. Track Grinder Goals: To be met in 10 weeks Goal 1: Pt to report independence and compliance with home program. Goal 2: Pt. Will report of 0/10 left hip pain while walking/standing for long periods of time to help improve her quality of life. Goal 3: Pt. Will demonstrate normal left LE muscle flexibility to help decrease hip pain while standing/walking for long periods of time. Goal 4: Pt. Will demonstrate 5/5 left hip strength grossly in all planes to allow her to walk/stand for long periods of time to help improve her quality of life. Goal 5: Pt. Will score 10% or less on back index to help improve her quality of life. Pt will benefit from skilled PT for 1-3x/week from 07/18/24 to 09/26/24 to address the above impairments. I hereby deem this POC medically necessary. Please sign below. Date: documented in this encounter [facility] 08-08-2024 History of Presen t illness Narrative Physical Therapy Treatment Visit Patient Name: Evaristo Green Today's Date: 08/08/24 Encounter Diagnoses Name Primary? Back pain of lumbosacral region with sciatica Yes Greater trochanteric bursitis of left hip Visit number: 6 Timed Code Treatment Minutes: 38 minutes Total Treatment Time: 38 minutes Time In: 1625 Time Out: 1703 History: Pt. Presents to PT with c/c left lateral hip pain which started 6 months. No KODY. 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 Denies N/T. Taking muscle relaxer 2 weeks which has not helped. Pt. Reports overall hip is starting to feel a little better. Precautions: as tolerated Subjective: Pt. Reports she had no pain for the last 4 days but she was off work. Pt. Reports she continues to have lateral mid thigh pain while standing at work for greater than 4 hours. Pain: 3/10 after standing at work for 4 hours. Objective: PT Evaluation (07/18/24) Left hip ROM: WFL Lumbar ROM: flexion normal, SB left decreased 50% with pain Flexibility: moderate ITB, piriformis and hamstring tightness Strength: left lateral hip 4/5, flexion 4+/5, extension 4/5 Palpation: TTP left greater trochanter Gait: antalgic gait Treatment: PT evaluation ( minutes) Education: HEP education with demonstration, Educated on Eval Findings and POC Manual Therapy: ( minutes) lumbar PA mobs, MFR, QL str. Hamstring str. Passive ROM, Joint mobilization, Soft Tissue Mobilization, Myofascial Release, Muscle Energy Technique, Neural Mobilization, Myofascial Cupping, Dry Needling, IASTM, and Scar mobilization Therapeutic Exercise: (30 minutes) exercises in grid; Strength, Endurance, Flexibility, ROM, HEP, Neural Mobilization, Power, and Core Stability Therapeutic Activity: (8 minutes) Exercises to improve dynamic activities, functional tasks, functional mobility to return to prior activity level Neuromuscular re-education: Balance Training, Muscle Facilitation, Dynamic Stability, Core Stabilization, and Blood Flow Restriction Training (BFRT) Modalities: Heat, Ice, Electrical Stimulation, Ultrasound, Cervical Mechanical Traction, Lumbar Mechanical Traction, Iontophoresis, and Fluidotherapy DN: left ITB protocol, 5x needles, (held minute rest) pt. Tolerated well and was agreeable to treatment. Assessment: Pt. Has participated in 6 PT session with start of POC on 07/18 with left greater trochanter bursitis. Pt. Will benefit from skilled PT services. Pt. Educated to continue with hip strengthening exercises to help decrease ITB pain while standing for long periods of time while at work. Pt. Demonstrates left gluteal medius weakness while performing exercises. Outcome Measure: 26% Short Term Goal: To be met in 2 weeks Goal 1: Pt to be instructed in home exercise program. Track Grinder Goals: To be met in 10 weeks Goal 1: Pt to report independence and compliance with home program. Goal 2: Pt. Will report of 0/10 left hip pain while walking/standing for long periods of time to help improve her quality of life. Goal 3: Pt. Will demonstrate normal left LE muscle flexibility to help decrease hip pain while standing/walking for long periods of time. Goal 4: Pt. Will demonstrate 5/5 left hip strength grossly in all planes to allow her to walk/stand for long periods of time to help improve her quality of life. Goal 5: Pt. Will score 10% or less on back index to help improve her quality of life. Pt will benefit from skilled PT for 1-3x/week from 07/18/24 to 09/26/24 to address the above impairments. I hereby deem this POC medically necessary. Please sign below. Date: documented in this encounter [facility] 08-01-2024 History of Presen t illness Narrative Physical Therapy Treatment Visit Patient Name: Evaristo Green Today's Date: 08/01/24 Encounter Diagnoses Name Primary? Back pain of lumbosacral region with sciatica Yes Greater trochanteric bursitis of left hip Visit number: 5 Timed Code Treatment Minutes: 40 minutes Total Treatment Time: 50 minutes Time In: 1630 Time Out: 1720 History: Pt. Presents to PT with c/c left lateral hip pain which started 6 months. No KODY. 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 Denies N/T. Taking muscle relaxer 2 weeks which has not helped. Pt. Reports overall hip is starting to feel a little better. Precautions: as tolerated Subjective: Pt. Reports her greater trochanteric [place] pain is gone but is having increased mid lateral thigh pain while standing for long periods of time while at work. DN tx help to decrease hip pain but not helping mid lateral thigh pain. Pain: 0/10 greater trochanter, 0-5/10 depending on activity mid ITB Objective: PT Evaluation (07/18/24) Left hip ROM: WFL Lumbar ROM: flexion normal, SB left decreased 50% with pain Flexibility: moderate ITB, piriformis and hamstring tightness Strength: left lateral hip 4/5, flexion 4+/5, extension 4/5 Palpation: TTP left greater trochanter Gait: antalgic gait Treatment: PT evaluation ( minutes) Education: HEP education with demonstration, Educated on Eval Findings and POC Manual Therapy: ( 10 minutes) lumbar PA mobs, MFR, QL str. Hamstring str. Passive ROM, Joint mobilization, Soft Tissue Mobilization, Myofascial Release, Muscle Energy Technique, Neural Mobilization, Myofascial Cupping, Dry Needling, IASTM, and Scar mobilization Therapeutic Exercise: (30 minutes) exercises in grid; Strength, Endurance, Flexibility, ROM, HEP, Neural Mobilization, Power, and Core Stability Therapeutic Activity: Exercises to improve dynamic activities, functional tasks, functional mobility to return to prior activity level Neuromuscular re-education: Balance Training, Muscle Facilitation, Dynamic Stability, Core Stabilization, and Blood Flow Restriction Training (BFRT) Modalities: Heat, Ice, Electrical Stimulation, Ultrasound, Cervical Mechanical Traction, Lumbar Mechanical Traction, Iontophoresis, and Fluidotherapy DN: left ITB protocol, 5x needles, (held minute rest) pt. Tolerated well and was agreeable to treatment. Assessment: Pt. Has participated in 5 PT session with start of POC on 07/18 with left greater trochanter bursitis. Pt. Will benefit from skilled PT services. Held DN tx due to not helping. Added more LE strengthening helping to help decrease ITB pain. Pt. Tolerated all ther ex well. Pt. Was educated to continue to improve hip strength with HEP. Outcome Measure: 26% Short Term Goal: To be met in 2 weeks Goal 1: Pt to be instructed in home exercise program. Mcfp Goals: To be met in 10 weeks Goal 1: Pt to report independence and compliance with home program. Goal 2: Pt. Will report of 0/10 left hip pain while walking/standing for long periods of time to help improve her quality of life. Goal 3: Pt. Will demonstrate normal left LE muscle flexibility to help decrease hip pain while standing/walking for long periods of time. Goal 4: Pt. Will demonstrate 5/5 left hip strength grossly in all planes to allow her to walk/stand for long periods of time to help improve her quality of life. Goal 5: Pt. Will score 10% or less on back index to help improve her quality of life. Pt will benefit from skilled PT for 1-3x/week from 07/18/24 to 09/26/24 to address the above impairments. I hereby deem this POC medically necessary. Please sign below. Date: documented in this encounter [facility] 07-28-2024 History of Presen t illness Narrative Physical Therapy Treatment Visit Patient Name: Evaristo Green Today's Date: 07/28/2024 Encounter Diagnoses Name Primary? Back pain of lumbosacral region with sciatica Yes Greater trochanteric bursitis of left hip Visit number: 4 Timed Code Treatment Minutes: 40 minutes Total Treatment Time: 50 minutes Time In: 1630 Time Out: 1720 History: Pt. Presents to PT with c/c left lateral hip pain which started 6 months. No KODY. 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 Denies N/T. Taking muscle relaxer 2 weeks which has not helped. Pt. Reports overall hip is starting to feel a little better. Precautions: as tolerated Subjective: Pt. Continue to be pleased with progress. Pain: 10 Objective: PT Evaluation (07/18/24) Left hip ROM: WFL Lumbar ROM: flexion normal, SB left decreased 50% with pain Flexibility: moderate ITB, piriformis and hamstring tightness Strength: left lateral hip 4/5, flexion 4+/5, extension 4/5 Palpation: TTP left greater trochanter Gait: antalgic gait Treatment: PT evaluation (20 minutes) Education: HEP education with demonstration, Educated on Eval Findings and POC Manual Therapy: ( 14 minutes) lumbar PA mobs, MFR, QL str. Hamstring str. Passive ROM, Joint mobilization, Soft Tissue Mobilization, Myofascial Release, Muscle Energy Technique, Neural Mobilization, Myofascial Cupping, Dry Needling, IASTM, and Scar mobilization Therapeutic Exercise: (24 minutes) exercises in grid; Strength, Endurance, Flexibility, ROM, HEP, Neural Mobilization, Power, and Core Stability Therapeutic Activity: Exercises to improve dynamic activities, functional tasks, functional mobility to return to prior activity level Neuromuscular re-education: Balance Training, Muscle Facilitation, Dynamic Stability, Core Stabilization, and Blood Flow Restriction Training (BFRT) Modalities: Heat, Ice, Electrical Stimulation, Ultrasound, Cervical Mechanical Traction, Lumbar Mechanical Traction, Iontophoresis, and Fluidotherapy DN: left ITB protocol, 5x needles, (10 minute rest) pt. Tolerated well and was agreeable to treatment. Assessment: Pt. Has participated in 4 PT session with start of POC on 07/18 with left greater trochanter bursitis. Pt. Will benefit from skilled PT services. DN to left ITB today. Added more hip strengthening to HEP. Progress well toward PT goals. Outcome Measure: 26% Short Term Goal: To be met in 2 weeks Goal 1: Pt to be instructed in home exercise program. [employer] Goals: To be met in 10 weeks Goal 1: Pt to report independence and compliance with home program. Goal 2: Pt. Will report of 0/10 left hip pain while walking/standing for long periods of time to help improve her quality of life. Goal 3: Pt. Will demonstrate normal left LE muscle flexibility to help decrease hip pain while standing/walking for long periods of time. Goal 4: Pt. Will demonstrate 5/5 left hip strength grossly in all planes to allow her to walk/stand for long periods of time to help improve her quality of life. Goal 5: Pt. Will score 10% or less on back index to help improve her quality of life. Pt will benefit from skilled PT for 1-3x/week from 07/18/24 to 09/26/24 to address the above impairments. I hereby deem this POC medically necessary. Please sign below. Date: documented in this encounter [facility] 07-26-2024 History of Presen t illness Narrative Physical Therapy Treatment Visit Patient Name: Evaristo Green Today's Date: 07/26/2024 Encounter Diagnoses Name Primary? Back pain of lumbosacral region with sciatica Yes Greater trochanteric bursitis of left hip Visit number: 3 Timed Code Treatment Minutes: 30 minutes Total Treatment Time: 40 minutes Time In: 1500 Time Out: 1540 History: Pt. Presents to PT with c/c left lateral hip pain which started 6 months. No KODY. 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 Denies N/T. Taking muscle relaxer 2 weeks which has not helped. Pt. Reports overall hip is starting to feel a little better. Precautions: as tolerated Subjective: Pt. Reports slight pain in left hip. 75% better. Having more left ITB pain today. Pain: 1/10 Objective: PT Evaluation (07/18/24) Left hip ROM: WFL Lumbar ROM: flexion normal, SB left decreased 50% with pain Flexibility: moderate ITB, piriformis and hamstring tightness Strength: left lateral hip 4/5, flexion 4+/5, extension 4/5 Palpation: TTP left greater trochanter Gait: antalgic gait Treatment: PT evaluation (20 minutes) Education: HEP education with demonstration, Educated on Eval Findings and POC Manual Therapy: ( minutes) lumbar PA mobs, MFR, QL str. Hamstring str. Passive ROM, Joint mobilization, Soft Tissue Mobilization, Myofascial Release, Muscle Energy Technique, Neural Mobilization, Myofascial Cupping, Dry Needling, IASTM, and Scar mobilization Therapeutic Exercise: (23 minutes) exercises in grid; Strength, Endurance, Flexibility, ROM, HEP, Neural Mobilization, Power, and Core Stability Therapeutic Activity: Exercises to improve dynamic activities, functional tasks, functional mobility to return to prior activity level Neuromuscular re-education: Balance Training, Muscle Facilitation, Dynamic Stability, Core Stabilization, and Blood Flow Restriction Training (BFRT) Modalities: Heat, Ice, Electrical Stimulation, Ultrasound, Cervical Mechanical Traction, Lumbar Mechanical Traction, Iontophoresis, and Fluidotherapy DN: left ITB protocol, 5x needles, (10 minute rest) pt. Tolerated well and was agreeable to treatment. Assessment: Pt. Has participated in 3 PT session with start of POC on 07/18 with left greater trochanter bursitis. Pt. Will benefit from skilled PT services. DN to left ITB today. Added more hip strengthening to HEP. Outcome Measure: 26% Short Term Goal: To be met in 2 weeks Goal 1: Pt to be instructed in home exercise program. Track [employer] Goals: To be met in 10 weeks Goal 1: Pt to report independence and compliance with home program. Goal 2: Pt. Will report of 0/10 left hip pain while walking/standing for long periods of time to help improve her quality of life. Goal 3: Pt. Will demonstrate normal left LE muscle flexibility to help decrease hip pain while standing/walking for long periods of time. Goal 4: Pt. Will demonstrate 5/5 left hip strength grossly in all planes to allow her to walk/stand for long periods of time to help improve her quality of life. Goal 5: Pt. Will score 10% or less on back index to help improve her quality of life. Pt will benefit from skilled PT for 1-3x/week from 07/18/24 to 09/26/24 to address the above impairments. I hereby deem this POC medically necessary. Please sign below. Date: documented in this encounter [facility] 07-21-2024 History of Presen t illness Narrative Physical Therapy Treatment Visit Patient Name: Evaristo Green Today's Date: 07/21/2024 Encounter Diagnoses Name Primary? Back pain of lumbosacral region with sciatica Yes Greater trochanteric bursitis of left hip Visit number: 1 Timed Code Treatment Minutes: 30 minutes Total Treatment Time: 40 minutes Time In: 1500 Time Out: 1540 History: Pt. Presents to PT with c/c left lateral hip pain which started 6 months. No KODY. 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 Denies N/T. Taking muscle relaxer 2 weeks which has not helped. Pt. Reports overall hip is starting to feel a little better. Precautions: as tolerated Subjective: Pt. Reports left hip feels 50% better. Pain: 5/10 today; worst 7/10 after work; pain location greater trochanter Objective: PT Evaluation (07/18/24) Left hip ROM: WFL Lumbar ROM: flexion normal, SB left decreased 50% with pain Flexibility: moderate ITB, piriformis and hamstring tightness Strength: left lateral hip 4/5, flexion 4+/5, extension 4/5 Palpation: TTP left greater trochanter Gait: antalgic gait Treatment: PT evaluation (20 minutes) Education: HEP education with demonstration, Educated on Eval Findings and POC Manual Therapy: (14 minutes) lumbar PA mobs, MFR, QL str. Hamstring str. Passive ROM, Joint mobilization, Soft Tissue Mobilization, Myofascial Release, Muscle Energy Technique, Neural Mobilization, Myofascial Cupping, Dry Needling, IASTM, and Scar mobilization Therapeutic Exercise: (16 minutes) exercises in grid; Strength, Endurance, Flexibility, ROM, HEP, Neural Mobilization, Power, and Core Stability Therapeutic Activity: Exercises to improve dynamic activities, functional tasks, functional mobility to return to prior activity level Neuromuscular re-education: Balance Training, Muscle Facilitation, Dynamic Stability, Core Stabilization, and Blood Flow Restriction Training (BFRT) Modalities: Heat, Ice, Electrical Stimulation, Ultrasound, Cervical Mechanical Traction, Lumbar Mechanical Traction, Iontophoresis, and Fluidotherapy DN: left greater trochanter protocol, 3x needles, (10 minute rest) pt. Tolerated well and was agreeable to treatment. Assessment: Pt. Has participated in 2 PT session with start of POC on 07/18 with left greater trochanter bursitis. Pt. Will benefit from skilled PT services. Good initial response with DN treatment. Added more stretching today and pt. Tolerated well. Less TTP to greater trochanter today. Outcome Measure: 26% Short Term Goal: To be met in 2 weeks Goal 1: Pt to be instructed in home exercise program. Mcfp Goals: To be met in 10 weeks Goal 1: Pt to report independence and compliance with home program. Goal 2: Pt. Will report of 0/10 left hip pain while walking/standing for long periods of time to help improve her quality of life. Goal 3: Pt. Will demonstrate normal left LE muscle flexibility to help decrease hip pain while standing/walking for long periods of time. Goal 4: Pt. Will demonstrate 5/5 left hip strength grossly in all planes to allow her to walk/stand for long periods of time to help improve her quality of life. Goal 5: Pt. Will score 10% or less on back index to help improve her quality of life. Pt will benefit from skilled PT for 1-3x/week from 07/18/24 to 09/26/24 to address the above impairments. I hereby deem this POC medically necessary. Please sign below. Date: documented in this encounter [facility] 07-18-2024 History of Presen t illness Narrative Physical Therapy Evaluation Visit Patient Name: Evaristo Green Today's Date: 07/18/2024 Encounter Diagnoses Name Primary? Back pain of lumbosacral region with sciatica Visit number: 1 Timed Code Treatment Minutes: 60 minutes Total Treatment Time: 60 minutes Time In: 1630 Time Out: 1730 History: Pt. Presents to PT with c/c left lateral hip pain which started 6 months. No KODY. 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 Denies N/T. Taking muscle relaxer 2 weeks which has not helped. Pt. Reports overall hip is starting to feel a little better. Precautions: as tolerated Subjective Pain: 5/10 today; worst 7/10 after work; pain location greater trochanter Objective: PT Evaluation (07/18/24) Left hip ROM: WFL Lumbar ROM: flexion normal, SB left decreased 50% with pain Flexibility: moderate ITB, piriformis and hamstring tightness Strength: left lateral hip 4/5, flexion 4+/5, extension 4/5 Palpation: TTP left greater trochanter Gait: antalgic gait Treatment: PT evaluation (20 minutes) Education: HEP education with demonstration, Educated on Eval Findings and POC Manual Therapy: Passive ROM, Joint mobilization, Soft Tissue Mobilization, Myofascial Release, Muscle Energy Technique, Neural Mobilization, Myofascial Cupping, Dry Needling, IASTM, and Scar mobilization Therapeutic Exercise: (16 minutes) exercises in grid; Strength, Endurance, Flexibility, ROM, HEP, Neural Mobilization, Power, and Core Stability Therapeutic Activity: Exercises to improve dynamic activities, functional tasks, functional mobility to return to prior activity level Neuromuscular re-education: Balance Training, Muscle Facilitation, Dynamic Stability, Core Stabilization, and Blood Flow Restriction Training (BFRT) Modalities: Heat, Ice, Electrical Stimulation, Ultrasound, Cervical Mechanical Traction, Lumbar Mechanical Traction, Iontophoresis, and Fluidotherapy DN: left greater trochanter protocol, 3x needles, (10 minute rest) pt. Tolerated well and was agreeable to treatment. Assessment: Pt. Has participated in 1 PT session with start of POC on 07/18 with left greater trochanter bursitis. Pt. Will benefit from skilled PT services. Outcome Measure: 26% Short Term Goal: To be met in 2 weeks Goal 1: Pt to be instructed in home exercise program. Mcfp Goals: To be met in 10 weeks Goal 1: Pt to report independence and compliance with home program. Goal 2: Pt. Will report of 0/10 left hip pain while walking/standing for long periods of time to help improve her quality of life. Goal 3: Pt. Will demonstrate normal left LE muscle flexibility to help decrease hip pain while standing/walking for long periods of time. Goal 4: Pt. Will demonstrate 5/5 left hip strength grossly in all planes to allow her to walk/stand for long periods of time to help improve her quality of life. Goal 5: Pt. Will score 10% or less on back index to help improve her quality of life. Pt will benefit from skilled PT for 1-3x/week from 07/18/24 to 09/26/24 to address the above impairments. I hereby deem this POC medically necessary. Please sign below. Date: Cosigned by Shira Hassan NP at 07/20/2024 7:25 AM EST documented in this encounter [facility] 07-11-2024 History of Presen t illness Narrative Associated Problem(s): Back pain of lumbosacral region with sciatica Back pain of lumbosacral region with sciatica Ongoing for 6 months intermittently. Complains L hip is painful with adduction. Worse with activity Better with rest. Tylenol/Ibuprofen- no relief. Associated Problem(s): Wellness examination I have reviewed Ht/Wt/BMI, I have reviewed recommended vaccines for patient's age, as well as all recommended screenings I have reviewed available care everywhere notes as well. I have recommended eating a balanced diet, as well as activity as chronic conditions allow It is recommended that the patient have a yearly eye exam, as well as twice a year dental exams Fu in this office for wellness on a yearly basis Diet: Eat three meals per day. Breakfast, lunch, and dinner. Avoid snacking. Avoid eating after 5/6 pm. Daily protein GOAL 35% of your intake; 30g per meal. Daily calorie GOAL 1,800-2,000 per day. Consider tracking your food intake on MyFtinessPal or LoseIt Water: Increase water intake; GOAL 64-80oz of water per day. Exercise: Increase activity. GOAL 30 minutes, 5 days per week. START SLOW. Start with 5 minutes, 5 days per week. Then increase to 10 days, 5 days per week. Continue to increase until you reach the goal. Increase steps; GOAL 10,000 steps per day. Be sure to get adequate sleep; GOAL 6-8 hours of sleep per night. Images from the original note were not included. Subjective Patient ID: Evaristo Green is a 43 y.o. female who presents for Establish Care. HPI Here today to establish care. Lives at home with BF and daughter Walking dogs riding motorcycle Diet: Mostly jhhome cooked meals. Furits vegetables/protein. Minimal sweets. Water: Only drinks water, 64 ounces per day. Caffeine: 8 ounces per day Exercise: Nothing consistent Sleep: 4 hours per night broken. Wakes up frequently throughout night. Has difficulty staying asleep. Back pain of lumbosacral region with sciatica Ongoing for 6 months intermittently. Complains L hip is painful with adduction. Worse with activity Better with rest. Tylenol/Ibuprofen- no relief. Review of Systems Constitutional: Negative for activity change, appetite change, chills, diaphoresis, fatigue, fever and unexpected weight change. HENT: Negative for congestion, ear pain, rhinorrhea, sinus pressure, sinus pain, sneezing, sore throat, trouble swallowing and voice change. Eyes: Negative for visual disturbance. Respiratory: Negative for cough, chest tightness, shortness of breath and wheezing. Cardiovascular: Negative for chest pain, palpitations and leg swelling. Gastrointestinal: Negative for abdominal distention, abdominal pain, blood in stool, constipation, diarrhea and vomiting. Genitourinary: Negative for decreased urine volume, dysuria, flank pain, frequency, hematuria and urgency. Musculoskeletal: Positive for myalgias. Negative for arthralgias, gait problem and joint swelling. Skin: Negative for rash. Neurological: Negative for dizziness, tremors, syncope, weakness, light-headedness and headaches. Psychiatric/Behavioral: Negative for decreased concentration and suicidal ideas. The patient is not nervous/anxious. Hematological: Does not bruise/bleed easily. Endocrine: Negative for cold intolerance, heat intolerance, polydipsia, polyphagia and polyuria. Objective Physical Exam Vitals reviewed. Constitutional: Appearance: Normal appearance. HENT: Head: Normocephalic and atraumatic. Right Ear: Tympanic membrane normal. Left Ear: Tympanic membrane normal. Nose: Nose normal. Mouth/Throat: Mouth: Mucous membranes are moist. Pharynx: Oropharynx is clear. Eyes: Pupils: Pupils are equal, round, and reactive to light. Cardiovascular: Rate and Rhythm: Normal rate and regular rhythm. Pulses: Normal pulses. Heart sounds: Normal heart sounds. Pulmonary: Effort: Pulmonary effort is normal. Breath sounds: Normal breath sounds. Abdominal: General: Abdomen is flat. Bowel sounds are normal. Palpations: Abdomen is soft. Musculoskeletal: Cervical back: Normal range of motion. Right hip: Tenderness present. Decreased range of motion. Skin: General: Skin is warm and dry. Capillary Refill: Capillary refill takes less than 2 seconds. Neurological: General: No focal deficit present. Mental Status: She is alert and oriented to person, place, and time. Psychiatric: Mood and Affect: Mood normal. Behavior: Behavior normal. Assessment/Plan Problem List Items Addressed This Visit Back pain of lumbosacral region with sciatica - Primary Back pain of lumbosacral region with sciatica Ongoing for 6 months intermittently. Complains L hip is painful with adduction. Worse with activity Better with rest. Tylenol/Ibuprofen- no relief. Relevant Medications tiZANidine (Zanaflex) 2 MG capsule Other Relevant Orders Ambulatory referral to Physical Therapy Wellness examination I have reviewed Ht/Wt/BMI, I have reviewed recommended vaccines for patient's age, as well as all recommended screenings I have reviewed available care everywhere notes as well. I have recommended eating a balanced diet, as well as activity as chronic conditions allow It is recommended that the patient have a yearly eye exam, as well as twice a year dental exams Fu in this office for wellness on a yearly basis Diet: Eat three meals per day. Breakfast, lunch, and dinner. Avoid snacking. Avoid eating after 5/6 pm. Daily protein GOAL 35% of your intake; 30g per meal. Daily calorie GOAL 1,800-2,000 per day. Consider tracking your food intake on MyFtinessPal or LoseIt Water: Increase water intake; GOAL 64-80oz of water per day. Exercise: Increase activity. GOAL 30 minutes, 5 days per week. START SLOW. Start with 5 minutes, 5 days per week. Then increase to 10 days, 5 days per week. Continue to increase until you reach the goal. Increase steps; GOAL 10,000 steps per day. Be sure to get adequate sleep; GOAL 6-8 hours of sleep per night. Relevant Orders TSH W/REFLEX TO FT4 Lipid panel Hemoglobin A1c Comprehensive metabolic panel CBC and differential documented in this encounter [facility] 07-07-2024 Instructions Shira Hassan NP - 07/07/2024 4:00 PM EDT FASTING labs ordered. Nothing to eat or drink for 12 hours prior to blood draw. Water and black coffee ok. Referral sent to Physical Therapy- they will call you. If you don't hear from them in 2 weeks, call office! INCREASE your cardiovascular ACTIVITY; GOAL 150 minutes per week. AVOID eating less than 2-4 hours before bedtime. AVOID all electronics for 2 hours prior to bedtime. Bed is for SLEEP ONLY. AVOID excessive alcohol intake. AVOID caffeine after 12:00pm. Go to bed when you are tired. If you are not tired that night, push the time back by 30 minutes the next night. Continue to do so until you are able to fall asleep without difficulty. If you wake up in the middle of the night, DO NOT LAY THERE FOR LONGER THAN 40 MINUTES. Once you are up, YOU ARE UP FOR THE DAY. AVOID napping. Get a Lavender diffuser in your bedroom. Magnesium Glycinate 500-1,000mg about 30-60 minutes before bedtime. Brand: Innate OR Melatonin 5mg-10mg 30 minutes before bedtime. Brand: Any brand, but once you select one, stick with it. documented in this encounter [facility] Evaluation note No Assessments Infor mation Available [facility] Evaluation note No assessment inform ation available [facility] Work Phone: Evaluation note Diagnosis Back pain of lumbosacral region with sciatica- Primary Wellness examination [facility] Diagnosis Back pain of lumbosacral region with sciatica- Primary Wellness examination Back pain of lumbosacral region with sciatica- Primary Greater trochanteric bursitis of left hip [facility] Diagnosis Back pain of lumbosacral region with sciatica- Primary Wellness examination Back pain of lumbosacral region with sciatica- Primary Greater trochanteric bursitis of left hip [facility] Diagnosis Back pain of lumbosacral region with sciatica- Primary Wellness examination Back pain of lumbosacral region with sciatica- Primary Greater trochanteric bursitis of left hip [facility] Diagnosis Back pain of lumbosacral region with sciatica- Primary Wellness examination Back pain of lumbosacral region with sciatica- Primary Greater trochanteric bursitis of left hip [facility] Diagnosis Back pain of lumbosacral region with sciatica- Primary Wellness examination Back pain of lumbosacral region with sciatica- Primary Greater trochanteric bursitis of left hip [facility] Diagnosis Back pain of lumbosacral region with sciatica- Primary Wellness examination Back pain of lumbosacral region with sciatica- Primary Greater trochanteric bursitis of left hip [facility] Diagnosis Back pain of lumbosacral region with sciatica- Primary Wellness examination Anemia, unspecified type- Primary Back pain of lumbosacral region with sciatica documented [facility] this [facility] Narrative* Rehabilitation - Outpatient (Routine) - Authorized Specialty Diagnoses / Procedures Referred By Morales ly Referred To Contact Physical Therapy Diagnoses Back pain of lumbosacral region with sciatica Procedures [place] OFFICE/OUTPATIENT [facility] 60 MINUTES Shira Hassan, ARLYN [address] [place] [address] Phone: tel: fax: Luly Garcia, PT [address] [address] Phone: tel: fax: Referral ID Status Reason Start Date Expiration Date Visits Requested Visits Authorized [id number] Authorized Specialty Services Required 4 01/03/2025 30 30 [facility] N[facility] - Outpatient (Routine) - Authorized Specialty Diagnoses / Procedures Referred By Morales ly Referred To Contact Physical Therapy Diagnoses Back pain of lumbosacral region with sciatica Procedures [place] OFFICE/OUTPATIENT NEW HIGH MDM 60 MINUTES Shira Hassan NP [address] [place] [address] Phone: tel: fax: Luly Garcia, PT [address] [address] Phone: tel: fax: Referral ID Status Reason Start Date Expiration Date Visits Requested Visits Authorized [id number] Authorized Specialty Services Required 4 09/06/2024 30 30 [facility] Advance Directives Advance Directive Response Recorded Date/ Time Advance Directives No May 01, 2019 12:12am Chief Complaint and Reason for Visit Chief Complaint Z12.31 r92.8 Surgery Chief Complaint Z12.31 r92.8 Surgery Covid test Chief Complaint r92.8 Family History Relationship Condition Age at Onset Recorded Date/T tu Not Specified Diabetes mellitus Unknown Hypertension Unknown father Alive and well Unknown Summary Purpose Additional Source Comments Care Teams (unrecognized sec tion and content) Team Status: Inactive Member Role Status Dates PHYSICIAN NO FAMILY Primary Care Provider Active Amna Cobos DO Attending Provider Active Team Status: Active Member Role Status Dates PHYSICIAN NO FAMILY Primary Care Provider Active Ribber Relationship Specialty Start Date End Date Rodrick Monge MD [address] [place] [address] PCP - General Family Medicine 07/07/24 Shira Hassan NP [address] [place] [address] Nurse Practitioner Family Medicine 07/07/24 Ribber Relationship Specialty Start Date End Date Rodrick Monge MD [address] [place] [phone] PCP - General Family Medicine 07/07/24 Shira Hassan NP [address] [place] [address] Nurse Practitioner Family Medicine 07/07/24 Ribber Relationship Specialty Start Date End Date Rodrick Monge MD [address] [place] [address] PCP - General Family Medicine 07/07/24 Shira Hassan NP [address] [place] [address] Nurse Practitioner Family Medicine 07/07/24 Ribber Relationship Specialty Start Date End Date Rodrick Monge MD [address] [place] [address] PCP - General Family Medicine 07/07/24 Shira Hassan NP [address] [place] [address] Nurse Practitioner Family Medicine 07/07/24 Ribber Relationship Specialty Start Date End Date Rodrick Monge MD [address] [place] [address] PCP - General Family Medicine 07/07/24 Shira Hassan NP [address] [place] [address] Nurse Practitioner Family Medicine 07/07/24 Ribber Relationship Specialty Start Date End Date Rodrick Monge MD [address] [place] [address] PCP - General Family Medicine 07/07/24 Shira Hassan NP [address] [place] [address] Nurse Practitioner Family Medicine 07/07/24 Ribber Relationship Specialty Start Date End Date Rodrikc Monge MD [address] [place] [phone] PCP - General Family Medicine 07/07/24 Shira Hassan NP [address] [place] [address] Nurse Practitioner Family Medicine 07/07/24 Ribber Relationship Specialty Start Date End Date Rodrick Monge MD [address] [place] [address] PCP - General Family Medicine 07/07/24 Shira Hassan NP [address] [place] [address] Nurse Practitioner Family Medicine 07/07/24 Ribber Relationship Specialty Start Date End Date Rodrick Monge MD [address] [place] [phone] PCP - General Family Medicine 07/07/24 Shira Hassan NP [address] [place] [address] Nurse Practitioner Family Medicine 07/07/24 Ribber Relationship Specialty Start Date End Date Rodrick Monge MD [address] [place] [address] PCP - General Family Medicine 07/07/24 Shira Hassan NP [address] [place] [address] Nurse Practitioner Family Medicine 07/07/24 Ribber Relationship Specialty Start Date End Date Rodrick Monge MD [address] [place] [phone] PCP - General Family Medicine 07/07/24 Shira Hassan NP [address] [place] [address] Nurse Practitioner Family Medicine 07/07/24 Ribber Relationship Specialty Start Date End Date Rodrick Monge MD [address] [place] [address] PCP - General Family Medicine 07/07/24 Shira Hassan NP [address] [place] [address] Nurse Practitioner Family Medicine 07/07/24 Ribber Relationship Specialty Start Date End Date Rodrick Monge MD [address] [place] [address] PCP - General Family Medicine 07/07/24 Shira Hassan NP [address] [place] [address] Nurse Practitioner Family Medicine 07/07/24 Ribber Relationship Specialty Start Date End Date Rodrick Monge MD [address] [place] [address] PCP - General Family Medicine 07/07/24 Shira Hassan NP [address] [place] [address] Nurse Practitioner Family Medicine 07/07/24 Ribber Relationship Specialty Start Date End Date Rodrick Monge MD [address] [place] [address] PCP - General Family Medicine 07/07/24 Shira Hassan NP [address] [place] [address] Nurse Practitioner Family Medicine 07/07/24 Ribber Relationship Specialty Start Date End Date Rodrick Monge MD [address] [place] [address] PCP - General Family Medicine 07/07/24 Shira Hassan NP [address] [place] [address] Nurse Practitioner Family Medicine 07/07/24 Ribber Relationship Specialty Start Date End Date Rodrick Monge MD [address] [place] [address] PCP - General Family Medicine 07/07/24 Shira Hassan NP [address] [place] [address] Nurse Practitioner Family Medicine 07/07/24 Ribber Relationship Specialty Start Date End Date Rodrick Monge MD [address] [place] [address] PCP - General Family Medicine 07/07/24 Shira Hassan NP [address] [place] [address] Nurse Practitioner Family Medicine 07/07/24 Goals (unrecognized section and content) Goals may be documented in a n alternate section INFORMATION SOURCE (unrecogn ized section and content) DATE CREATED AUTHOR 04/05/2022 [facility] DATE CREATED AUTHOR AUTHOR'S ORGANIZ ATION 01/14/2023 [facility] DATE CREATED AUTHOR AUTHOR'S ORGANIZ ATION 09/25/2024 [facility] EPIC Reason for Visit (unrecogniz ed section and content) Reason Comments Establish Care Reason Comments Follow-up 2 m FOR RECORDS PERTAINING TO PATIENTS WHO ARE OR HAVE BEEN ENROLLED IN A CHEMICAL DEPENDENCY/SUBSTANCEABUSE PROGRAM, SOME INFORMATION MAY BE OMITTED. This clinical summary was aggregated from multiple sources. Caution should be exercised in using it in the provision of clinical care. This summary normalizes information from multiple sources, and as a consequence, information in this document may materially change the coding, format and clinical context of patient data. In addition, data may be omitted in some cases. CLINICAL DECISIONS SHOULD BE BASED ON THE PRIMARY CLINICAL RECORDS. [facility]. provides no warranty or guarantee of the accuracy or completeness of information in this document.
[2024-09-29 15:43] LABS: Internal Control Within Normal Limits; Occult Blood Negative
== END 2024-09-29 15:28 | disposition home or self-care (01) ==
LOC: LAB 15:27
DX: D64.9 Anemia, unspecified (principal)
CPT/HCPCS: G0328

== ENCOUNTER 2025-08-29 21:26 | Emergency (ER) | payer BC, SELFPAY ==
[2025-08-29 21:38] VITALS: BP 162/99; PULSE 79; TEMP 36.9; O2SAT 100; BMI 28.3
--- OUTSIDE RECORDS SUMMARY | 2025-08-29 21:56 | XMS_ITS | Clinical Summary ---
Author Organization [facility] Address [address] [place] [address] Care Team Providers Care Certified Endoscopy Technician Name Role Phone Rodrick Monge MD Primary Care Provider [phone] Shira Hassan EDUCATOR SENIOR CLINICAL Unavailable [phone] Shira Hassan EDUCATOR SENIOR CLINICAL Unavailable [phone] Allergies No known active allergies Medications MedicationSigDispense QuantityRefillsLast FilledStart DateEnd DateStatus tiZANidine (Zanaflex) 2 MG capsule Indications:Back pain of lumbosacral region with sciaticaTake 1 capsule (2 mg) by mouth every 8 (eight) hours 90 capsule 1114Active estradiol (Estrace) 1 MG tablet Indications:Hormone replacement therapyTake 1 tablet daily. 90 tablet 5Active Active Problems ProblemNoted DateDiagnosed TrhuWbuyro78/16/2025 Assessment & Plan (09/22/2024 3:12 PM EST): Slight anemia noted on lab work, will do anemia workup today to determine specific cause. Back pain of lumbosacral region with msuacmgu01/31/2024 Assessment & Plan (09/22/2024 3:11 PM EST): Is here today for a 2 month follow up. Completed PT- states her leg and back pain is significantly better since doing PT. Assessment & Plan (07/11/2024 1:33 PM EST): Back pain of lumbosacral region with sciatica Ongoing for 6 months intermittently. Complains L hip is painful with adduction. Worse with activity Better with rest. Tylenol/Ibuprofen- no relief. Abnormal llwyxiokp45/19/2023nogenital warts03/25/2023 Resolved Problems ProblemNoted DateDiagnosed DateResolved DateEncounter to establish care Wellness fkkhduwyzld04 Assessment & Plan (07/11/2024 1:32 PM EST): I have reviewed Ht/Wt/BMI, I have reviewed recommended vaccines for patient's age, as well as all recommended screenings I have reviewed available care everywhere notes as well. I have recommended eating a balanced diet,as well as activity as chronic conditions allow It is recommended that the patient have a yearly eye exam, as well as twice a year dental exams Fu in this office for wellness on a yearly basis Diet: Eat three meals per day. Breakfast, lunch, and dinner. Avoid snacking. Avoid eating after 5/6pm. Daily protein GOAL 35% of your intake; 30g per meal. Daily calorie GOAL 1,800-2,000 per day. Consider tracking your food intake on [employer] or LoseIt Water: Increase water intake; GOAL [...] GOAL 6-8 hours of sleep per night. Cxssdnroxrlj65MetrorrhagiaOvarian mass, left Family History Medical HistoryRelationNameCommentsDiabetesMotherDebbie prillHypertensionMother Maryam prillRelationNameStatusCommentsFatherAliveMotherDebbie prillAlive Social History Tobacco UseTypesPacks/DayYears UsedDateSmoking Tobacco: KyvhcyGymfgvosci884 Smokeless Tobacco: Never Tobacco Cessation:Counseling Given: Not Answered Alcohol UseStandard Drinks/WeekCommentsNot Currently2 (1 standard drink = 0.6 oz pure alcohol)B1300 Health LiteracyAnswerDate RecordedHow often do you need to have someone help you when you read instructions, pamphlets, or other written material from your doctor or pharmacy?Never07/06/2024Social Connection and Isolation PanelAnswerDate RecordedIn a typical week, how many times do you talk on the phone with family, friends, or neighbors?More than three times a week 07/06/2024How often do you get together with friends or relatives?Once a week 07/06/2024How often do you attend amish or bahai services?1 to 4 times per year07/06/2024o you belong to any clubs or organizations such as amish groups, unions, fraternal or athletic groups, or school groups?No07/06/2024How often do you attend meetings of the clubs or organizations you belong to?Never07/06/2024 Are you , , , , never , or living with a partner?Living with vhnzjao4407/06/2024UDIT-CAnswerDate RecordedQ1: How often do you have a drink containing alcohol?Monthly or less07/06/2024Q2: How many drinks containing alcohol do you have on a typical day when you are drinking?1 or 2 07/06/2024Q3: How often do you have six or more drinks on one occasion?Never 07/06/2024Overall Financial Resource Strain (CARDIA)AnswerDate RecordedHow hard is it for you to pay for the very basics like food, housing, medical care, and heating?Patient wdplkark27/30/2024HQ-2AnswerDate RecordedPatient Health Questionnaire-2 Dwwip429[facility] [place] of Occupational Health - Occupational Stress QuestionnaireAnswerDate RecordedDo you feel stress - tense, restless, nervous, or anxious, or unable to sleep at night because yourmind is troubled all the time - these days?To some isgsyd0607/06/2024Exercise Vital Sign AnswerDate RecordedOn average, how many days per week do you engage in moderate to strenuous exercise (like a brisk walk)?5 days07/06/2024On average, how many minutes do you engage in exercise at this level?30 min07/06/2024Hunger Vital SignAnswerDate RecordedWithin the past 12 months, you worried that your food would run out before you got the money to buymore.Patient ljawpdrg70/30/2024 Within the past 12 months, the food you bought just didn't last and you didn't have money to get more.Patient ykjbhboz61/30/2024RAPARE - TransportationAnswer Date RecordedIn the past 12 months, has lack of transportation kept you from medical appointments or from getting medications?Patient qlnifmxd26/30/2024In the past 12 months, has lack of transportation kept you from meetings, work, or from getting things needed for daily living?Patient /30/2024Housing Stability Vital SignAnswerDate RecordedIn the last 12 months, was there a time when you were not able to pay the mortgage or rent on time?No07/06/2024In the past 12 months, how many times have you moved where you were living? At any time in the past 12 months, were you homeless or living in a alf (including now)?No07/06/2024CommentsNoSex and Gender InformationValue Date RecordedSex Assigned at BirthNot on fileLegal NfiFdargs30/15/2023 9:50 PM EDTGender IdentityNot on fileSexual OrientationNot on file Last Filed Vital Signs Vital SignReadingTime TakenCommentsBlood Iddjtzfb935/8804/03/2025 3:32 PM EDT Sitwc546009/22/2024 2:55 PM VLMJjybcgobkqp00.4 ??C (97.5 ??F)09/22/2024 2:55 PM ESTRespiratory Fvzt7806 2:55 PM ESTOxygen Foqppcpfzz53%09/22/2024 2:55 PM ESTInhaled Oxygen Concentration--Aolvye72.4 kg (175 lb)04/03/2025 3:32 PM EDT Yeeyoj503.1 cm (5' 5 )04/03/2025 3:32 PM EDTBody Mass Index29.1207 3:32 PM EDT Plan of Treatment DateTypeDepartmentCare Team (Latest Contact Info)Fvykzvoaiss46/29/2026 4:00 PM EDTOffice Visit [facility] [address] [place] [phone] Lupillo Madrid, [address] [place] [address] Health MaintenanceDue DateLast DoneCommentsCT Otfosngoknpv1980Colonoscopy 1980Colorectal Cancer Mgtotnets1980FIT-DNA1980FIT1980 FOBT1980 6779Sfergljsmomxa52/28/2151Yeylqhmaq52/21/202307/, 12/21/2020 Influenza Vaccine (#1)2025Pap BqsdhHtugbiatsisq09/19/2023ervical Cancer ScreeningDiscontinuedHPV/KzikcaHooyladtxnud75/28/2025, 03/29/2024, 12/18/2020 Pneumococcal Vaccine: Pediatrics (0 to 5 Years) and At-Risk Patients (6 to 64 Years)Aged OutNo longer eligible based on patient's age to complete this topic Procedures Procedure NamePriorityDate/TimeAssociated DiagnosisCommentsIGP,RFXAPTIMA HPV ALL,16/18,34Cmtwawh45/28/2025 12:00 AM EDT Encounter for Papanicolaou smear of vagina THINPREP TIS TJSTqtpvpe74/19/2023 4:32 PM EDT Encounter for gynecological examination without abnormal finding Encounter for Papanicolaou smear of vagina BI MAMMOGRAM DIAGNOSTIC AJAMOEABOIzbwkgv43/21/2022 Immunization not carried out because of patient refusal Other abnormal and inconclusive findings on diagnostic imaging of breast Hormone replacement therapy Encounter for gynecological examination (general) (routine) with abnormal findings Encounter for screening mammogram for malignant neoplasm of breast Encounter for screening for malignant neoplasm of vagina from Last 3 Months or Most Recently Relevant to Health Maintenance Results * IGP,rfxAptima HPV all,16/18,45 (04/03/2025 12:00 AM EDT)ComponentValueRef RangeTest MethodAnalysis TimePerformed AtPathologist SignatureDiagnosis: CommentLABCORPComment:NEGATIVE FOR INTRAEPITHELIAL LESION OR MALIGNANCY. Specimen Adequacy:CommentLABCORPComment:Satisfactory for evaluation. No endocervical component is identified.Clinician Provided ICD10:CommentLABCORP Comment:Z12.72Performed By:CommentLABCORPComment:Simin Sawyer, Spa Associate Cyto Comments.LABCORPNote:CommentLABCORPComment: The Pap smear is a screening test designed to aid in the detection of premalignant and malignant conditions of the uterine cervix. ??It is not a diagnostic procedure and should not be used as the sole means of detecting cervical cancer. ??Both false-positive and false-negative reports do occur. Test Methodology:CANCELEDLABCORPComment: The ChangePanda(R) Director Of Business Services was unable to read this specimen. ??Therefore a manual review was performed. Result canceled by the ancillary. .CommentLABCORPComment: The HPV DNA reflex criteria were not met with this specimen result therefore, no HPV testing was performed. Specimen (Source)Anatomical Location / LateralityCollection Method / Volume Collection TimeReceived TimeSwabVaginal structure / Ongcoky24/ Comment:Vagina Print requisit Narrative [facility] - 04/06/2025 9:07 AM EDT Performed at: 01 - [address] ??[id number] Flexographic Press Helper: Isela Lay MD, Phone: ??[phone] Specimen Comment: [id number] Specimen Comment: No. of containers..01 ThinPrep Vial Authorizing ProviderResult TypeResult StatusWilliam Jorge Madrid [facility] CYTOLOGY ORDERABLESEdited Result - FinalPerforming OrganizationAddressCity/State/ZIP Code Phone Number LABCO * THINPREP TIS PAP (03/25/2023 4:32 PM EDT)ComponentValueRef RangeTest Method Analysis TimePerformed AtPathologist SignatureCLINICAL INFORMATIONQUEST Comment:None givenLMPQUESTComment:NONE GIVENPREV. PAPQUESTComment:NONE GIVEN PREV. BXQUESTComment:NONE GIVENSOURCEQUESTComment:None givenSTATEMENT OF ADEQUACYQUESTComment: Satisfactory for evaluation. Endocervical/transformation zone component absent. INTERPRETATION/RESULTQUESTComment: Cytology Results: Negative for intraepithelial lesion or malignancy. COMMENTQUESTComment: This Pap test has been evaluated with computer assisted technology. CYTOTECHNOLOGISTQUESTComment: BGG, SCT(ASCP) CT screening location: [facility], [address] [place] [address]. REVIEW CYTOTECHNOLOGISTQUESTComment: LLT, CT(ASCP) CT screening location: [place] [address]. (ALWAYS MESSAGE)QUESTComment: EXPLANATORY NOTE: The Pap is a screening test for cervical cancer. It is not a diagnostic test and is subject to false negative and false positive results. It is most reliable when a satisfactory sample, regularly obtained, is submitted with relevant clinical findings and history, and when the Pap result is evaluated along with historic and current clinical information. Specimen (Source)Anatomical Location / LateralityCollection Method / Volume Collection TimeReceived Time03/25/2023 4:32 PM EDT03/26/2023 4:13 AM EDT Narrative Resulting Agency Comment Performing Organization Information ?Site ID: [id number] ?Name: [facility] ?Address: [address] [place] [phone] ?Director: Yogesh Cabrera MD Authorizing ProviderResult TypeResult StatusWilliam Jorge Madrid [facility] BLOOD ORDERABLESFinal ResultPerforming OrganizationAddressCity/State/ZIP CodePhone Number [facility] * Bilateral diagnostic mammogram (03/27/2022)Anatomical RegionLateralityModality BreastBilateralMammographySpecimen (Source)Anatomical Location / Laterality Collection Method / VolumeCollection TimeReceived Time Impressions 03/27/2022 12:00 AM EDT NO MAMMOGRAPHIC OR ULTRASOUND EVIDENCE OF MALIGNANCY. ROUTINE FOLLOW-UP IS RECOMMENDED IN ONE YEAR. RESULT CODE: 2 ?? Benign Findings(s) DENSITY CODE: 2 (approximately 25-50% glandular) FOLLOW UP: 1YR The false-negative rate of mammography is approximately 10-percent. Management of a palpable abnormality must be based on clinical grounds. Impression dictated by: Orion Cummings Jr., D.OSanam03/27/2022 3:30 PM Dictation Location: [id number] Tech: Archana Deleon; Iseal Ruiz Transcribed By: ? PWS ?03/27/22 1530 Dictated By: ?Orion Cummings Jr, DO ?03/27/22 1526 Signed By: <Electronically signed by Orion Cummings Jr, DO in OV> ?03/27/22 1530 Narrative 03/27/2022 12:00 AM EDT PERFORMED AT [facility] LOCATION:[place] [address] ?[facility] ?[facility] [place] [address] [place] ?[address] ? [place] [address] ? Ultrasound Report ? Signed Patient: Evaristo Geren ?MR#: [id number] 88 : 1980 ?Acct:[id number] Age/Sex: 41 / F ?ADM Date: 03/27/22 Loc: [place] ?Room: ?Type: REG CLI Attending Dr: Lupillo Madrid DO Ordering Provider: Lupillo Madrid DO Date of Service: 03/27/22 MM/MM diagnostic mammo BI w/CAD: abnormal 2020 mammogram;Breast cancer screening;Abnormal bryan ([id number]) US/US breast LT limited: F/U Copies to: Lupillo Madrid,DO CLINICAL DATA: ?Follow-up cyst left breast BilateralDIAGNOSTIC MAMMOGRAM - WITH TOMOSYNTHESIS AND CAD , leftLIMITED BREAST ULTRASOUND COMPARISON:Mammograms dating back to 2020. ??Left breast ultrasound 12/25/2020 Tomosynthesis imaging was obtained using low-dose digital technique. ?? This examination was reviewed with the aid of CAD. Additional ultrasound imaging was also obtained. Mammogram: The breasts are composed of scattered fibroglandular densities. ??No new areas of architectural distortion, worrisome masses or suspicious calcifications Ultrasound: At the 8:00 position of the left breast approximately 4 to 5 cm from nipple, the previous identified cyst is unchanged in size and configuration measuring 4 mm in greatest dimension. US/US breast LT limited Procedure Note CONVERSION, GENERIC - 03/13/2023 PERFORMED AT [facility] LOCATION:[address] [place] [address] [place] [address] Ultrasound Report Signed Patient: Evaristo Green RMR#: [id number] [birth year] : 1980Acct:[id number] Age/Sex: 41 / FADM Date: 03/27/22 Loc: [place] Room:Type: [facility] Attending Dr: Lupillo Madrid DO Ordering Provider: Lupillo Madrid DO Date of Service: 03/27/22 MM/MM diagnostic mammo BI w/CAD: abnormal 2020 mammogram;Breast cancer screening;Abnormal bryan ([id number]) US/US breast LT limited: F/U Copies to: Lupillo Madrid DO CLINICAL DATA: Follow-up cyst left breast BilateralDIAGNOSTIC MAMMOGRAM - WITH TOMOSYNTHESIS AND CAD , leftLIMITEDBREAST ULTRASOUND COMPARISON:Mammograms dating back to 2020. Left breast ultrasound12/25/2020 Tomosynthesis imaging was obtained using low-dose digital technique.This examination was reviewed with the aid of CAD. Additional ultrasound imaging was alsoobtained. Mammogram: The breasts are composed of scattered fibroglandular densities. No newareas of architectural distortion, worrisome masses or suspicious calcifications Ultrasound: At the 8:00 position of the left breast approximately 4 to 5 cm fromnipple, the previous identified cyst is unchanged in size and configuration measuring 4 mm ingreatest dimension. US/US breast LT limited IMPRESSION: NO MAMMOGRAPHIC OR ULTRASOUND EVIDENCE OF MALIGNANCY. ROUTINE FOLLOW-UP IS RECOMMENDED IN ONE YEAR. RESULT CODE: 2 Benign Findings(s) DENSITY CODE: 2 (approximately 25-50% glandular) FOLLOW UP: 1YR The false-negative rate of mammography is approximately 10-percent. Management of a palpable abnormality must be based on clinical grounds. Impression dictated by: Orion Cummings Jr., D.O.03/27/2022 3:30 PM Dictation Location: [facility] Tech: Archana Deleon; Isela Ruiz Transcribed By: ANGUS 03/27/22 1530 Dictated By: Orion Cummings Jr, DO 03/27/22 1526 Signed By: <Electronically signed by Orion Cummings Jr, DO inOV> 03/27/22 1530 Authorizing ProviderResult TypeResult StatusWiantonino Madrid DOIMG BI PROCEDURES Final Result from Last 3 Months or Most Recently Relevant to Health Maintenance Insurance Care Teams Team MemberRelationshipSpecialtyStart DateEnd Date Rodrick Monge MD PCP - GeneralFamily Lrgtqxcg85/31/24 Shira Hassan NP PCP - [employer]09/07/24 Shira Hassan NP Nurse PractitionerFamily Ftyguqpk65/31/24
--- NOTE | 2025-08-29 22:04 | ED_ITS ---
HPI - Dental/Oral General Chief complaint: Dental/Oral Stated complaint: Dental PAIN Time Seen by Provider: 08/29/25 21:50 Source: patient Mode of arrival: walk-in History of Present Illness HPI Narrative: This 45-year-old female presents for evaluation of dental pain and some adjacent facial pain and swelling around tooth #12. The patient states several months ago she had several teeth removed and a filling placed into tooth #12. Starting on Thursday she started having pain in the left side of her face. She thought she had a sinus infection but has since developed some gingival swelling and dental pain and tooth #12. She is not having difficulty breathing or swallowing. She has not had any fevers or chills. She reached out to her dentist but they are not available till after the . Related Data Allergies Allergy/AdvReac Type Severity Reaction Status Date / Time No Known Drug Allergies Allergy Verified 08/29/25 21:38 Review of Systems ROS Status of ROS 10 or more systems reviewed and unremark able except as noted in history and below PFSH PFSH Social History Little interest or pleasure in doing things: not at all Feeling down, depressed, or hopeless: not at all Exam Narrative Exam Narrative: Vital signs and Nursing Notes reviewed: General: Awake, alert, oriented, no acute distress, lying comfortably on the stretcher HEENT: Normocephalic atraumatic, mucous membranes are moist and pink, eyes are clear, normal conjunctiva, vision is grossly intact, there is tenderness to percussion of tooth #12 with some adjacent local gingival edema and erythema. No periapical abscess appreciated. Mild swelling over the left cheek. No crepitus noted. No sign of necrotizing gingivitis. The remainder of the oral cavity appears normal with no sign of diffuse periodontal disease. Neck: Supple, no meningeal signs, no anterior or posterior cervical lymphadenopathy, no anterior neck swelling or concerns for Onur's angina Chest: Lungs are clear to auscultation with good air entry, there is no wheezing rhonchi or rales appreciated no accessory muscle use, patient is speaking in complete sentences-no chest wall tenderness to palpation CVS: Regular rate and rhythm S1-S2, no murmurs rubs or gallops, pulses are brisk and equal bilaterally Extremities: Moving all extremities, no lower extremity tenderness or swelling noted Skin: Normal in appearance without rash,pallor, petechiae or purpura Neuro: No focal deficits Constitutional Vital Signs, click to edit/add: Last Vital Signs Temp 98.4 F 08/29/25 21:38 Pulse 79 08/29/25 21:38 Resp 18 08/29/25 21:38 BP 162/99 H 08/29/25 21:38 Pulse Ox 100 08/29/25 21:38 O2 Del Method Room Air 08/29/25 21:38 Course Vital Signs Vital signs: Vital Signs Temperature 98.4 F 08/29/25 21:38 Pulse Rate 79 08/29/25 21:38 Respiratory Rate 18 08/29/25 21:38 Blood Pressure 162/99 H 08/29/25 21:38 Pulse Oximetry 100 08/29/25 21:38 Oxygen Delivery Method Room Air 08/29/25 21:38 Temperature 98.4 F 08/29/25 21:38 Pulse Rate 79 08/29/25 21:38 Respiratory Rate 18 08/29/25 21:38 Blood Pressure 162/99 H 08/29/25 21:38 Pulse Oximetry 100 08/29/25 21:38 Oxygen Delivery Method Room Air 08/29/25 21:38 MDM - Dental/Oral MDM Narrative Medical decision making narrative: This 45-year-old female who recently had some dental work done presents for evaluation of dental pain and gingival swelling with some mild facial swelling adjacent to tooth #12. The symptoms started on Thursday. She states she thought she was getting a sinus infection but the pain localized to the dental area where she recently had several teeth extracted and fillings placed. She has some gingival swelling and tenderness to tooth #12. She cannot get into see her dentist until after the holiday. She was medicated emergency department with a dose of Percocet, Zofran and amoxicillin and will be discharged home with a Percocet and amoxicillin for morning use until she can get to the pharmacy later tomorrow afternoon. She did reach out to her dentist who is not available till after the hol and will follow-up with him at that time. Discharge Plan Discharge Chief Complaint: Dental/Oral Clinical Impression: Toothache, Dental infection Patient Disposition: Home, Self-Care Time of Disposition Decision: 22:12 Condition: Good Print Language: Vincentian Instructions: Dental Abscess (ED), Toothache (ED) Referrals: SHAWNA SWAIN [Primary Care Provider] - 1 week
[2025-08-29] MEDS: AMOXICILLIN 500 MG CAPSULE PO ×2 (22:24)
[2025-08-29] MEDS: ONDANSETRON 4 MG RAPDIS TABLET SL (22:24)
[2025-08-29] MEDS: OXYCODONE HCL/ACETAMINOPHEN 5MG/325MG 1 TAB PO ×2 (22:24→22:25)
[2025-08-29 22:31] VITALS: PULSE 84; O2SAT 100
== END 2025-08-29 22:31 | disposition home or self-care (01) ==
PROVIDERS: Emergency Provider Emergency Medicine
DX: K08.89 Other specified disorders of teeth and supporting structures (principal)
CPT/HCPCS: 80053; 85610; 99283; Q0162